=== PATIENT | male | born 1950 | race Caucasian/White ===

== ENCOUNTER 2017-12-06 17:17 | Inpatient (IN) | payer MEDICARE ==
[2017-12-06 18:39] LABS: BASOPHILS % (AUTO) 0.2 %; EOSINOPHILS # (AUTO) 0.1 10^3/uL (0.0-0.7); EOSINOPHILS % (AUTO) 0.5 %; HGB - HEMOGLOBIN 13.3 g/dL (14.0-18.0); LYMPHOCYTES % (AUTO) 6.8 %; MEAN CORPUSCULAR HGB CONC 33.6 g/dL (32.0-36.0); MEAN CORPUSCULAR VOLUME 89.2 fL (80.0-94.0); MEAN PLATELET VOLUME 7.5 fL (7.4-11.4); MONOCYTES # (AUTO) 1.3 10^3/uL (0.0-1.0); MONOCYTES % (AUTO) 8.8 %; NEUTROPHILS # (AUTO) 12.2 10^3/uL (1.5-6.6); NEUTROPHILS % (AUTO) 83.7 %; PLT - PLATELET COUNT 205 10^3/uL (130-450); RED BLOOD COUNT 4.42 10^6/uL (4.70-6.10); RED CELL DISTRIBUTION WIDTH 13.1 % (12.0-15.0); WHITE BLOOD COUNT 14.6 x10^3/uL (4.8-10.8)
[2017-12-06 18:49] LABS: ALBUMIN 3.8 g/dL (3.2-5.5); ALBUMIN/GLOBULIN RATIO 1.1 (1.0-2.2); CALCIUM 8.8 mg/dL (8.5-10.3); CREATININE 1.8 mg/dL (0.6-1.2); TOTAL PROTEIN 7.3 g/dL (6.7-8.2)
[2017-12-06 18:52] LABS: INR 1.1 (0.8-1.2); PT - PROTHROMBIN TIME 12.7 secs (9.9-12.6)
[2017-12-06 19:02] LABS: BILIRUBIN,URINE NEGATIVE (NEGATIVE); GLUCOSE, URINE (UA) NEGATIVE (NEGATIVE); KETONES,URINE (UA) NEGATIVE (NEGATIVE); LEUKOCYTE ESTERASE, URINE NEGATIVE (NEGATIVE); NITRITE,URINE NEGATIVE (NEGATIVE); OCCULT BLOOD,URINE NEGATIVE (NEGATIVE); PH,URINE 5.5 PH (5.0-7.5); PROTEIN,URINE TRACE mg/dL (NEGATIVE); UROBILINOGEN,URINE 2 E.U./dL (NORMAL)
[2017-12-06 19:04] LABS: CLARITY,URINE CLEAR (CLEAR)
[2017-12-06] MEDS ORDERED: SODIUM CHLORIDE 0.9% 1,000 ML IV ONE (19:40)
[2017-12-06] MEDS ORDERED: ONDANSETRON 4 MG/2 ML VIAL IVP STA (19:40)
--- NOTE | 2017-12-06 19:44 | ED Physician Documentation ---
PD HPI ABD PAIN - Stated complaint Stated Complaint: RT SIDE PX - Chief complaint Chief Complaint: Abd Pain - History obtained from History obtained from: Patient - History of Present Illness Timing - onset: Other (This is a 67-year-old gentleman with history of congestive heart failure and methamphetamine and GHB abuse although he says he has not used in a couple of weeks. He has 3 days of constant nonmigratory right lower quadrant pain that is worse with heat when he moves. It is associated with obstipation. No vomiting however it. He says he never had any abdominal surgeries, but he does have a periumbilical incision and when confronted with this says he may have had umbilical hernia repair in the past.) Review of Systems Ten Systems: 10 systems reviewed and negative Constitutional: denies: Fever, Chills Cardiac: denies: Chest pain / pressure, Palpitations Respiratory: denies: Dyspnea, Cough GI: reports: Abdominal Pain, Constipation. denies: Nausea, Vomiting, Hematemesis, Bloody / black stool PD PAST MEDICAL HISTORY - Past Medical History Cardiovascular: Hypertension GI: GERD - Past Surgical History Past Surgical History: Yes - Present Medications Home Medications: Ambulatory Orders Medication Instructions Recorded Confirmed Furosemide [Lasix] 20 mg PO DAILY #14 tablet 09/01/14 Lisinopril 0 12/06/17 Metoprolol Succinate 25 mg PO DAILY 12/06/17 Spironolactone 12.5 mg PO DAILY 12/06/17 - Allergies Allergies/Adverse Reactions: Allergies Allergy/AdvReac Type Severity Reaction Status Date / Time No Known Drug Allergies Allergy Verified 12/06/17 17:25 - Social History Does the pt smoke?: No Smoking Status: Never smoker Does the pt drink ETOH?: No Does the pt have substance abuse?: Yes - Family History Family history: reports: Non contributory - Immunizations Immunizations are current?: Yes - POLST Patient has POLST: No PD ED PE NORMAL - Vitals Vital signs reviewed: Yes - General General: Alert and oriented X 3, No acute distress - HEENT HEENT: PERRL, EOMI - Neck Neck: Supple, no meningeal sign, No bony TTP - Cardiac Cardiac: RRR, No murmur - Respiratory Respiratory: No respiratory distress, Clear bilaterally - Abdomen Abdomen: Other (Quite tender in the right lower quadrant with rebound tenderness.) - Back Back: No CVA TTP, No spinal TTP - Derm Derm: Normal color, Warm and dry - Extremities Extremities: No edema, No calf tenderness / cord - Neuro Neuro: Alert and oriented X 3, Normal speech Results - Vitals Vitals: Vital Signs - 24 hr 12/06/17 12/06/17 17:21 18:54 Temperature 36.5 C Heart Rate 94 70 Respiratory 18 16 Rate Blood Pressure 97/51 L 108/77 O2 Saturation 95 99 Oxygen O2 Source Room air - EKG (time done) 2047 Rate: Rate (enter#) (75) Rhythm: NSR [place]: Normal Intervals: Normal GA QRS: Normal, Low voltage Ischemia: Normal ST segments Computer interpretation: Agree with computer - Labs Labs: Laboratory Tests 12/06/17 12/06/17 12/06/17 18:05 18:05 18:29 WBC 14.6 H RBC 4.42 L Hgb 13.3 L Hct 39.5 L MCV 89.2 MCH 30.0 MCHC 33.6 RDW 13.1 Plt Count 205 MPV 7.5 Neut # 12.2 H Lymph # 1.0 L [place] # 1.3 H Eos # 0.1 Baso # 0.0 Absolute Nucleated RBC 0.00 Nucleated RBC % 0.0 PT INR Sodium Potassium Chloride Carbon Dioxide Anion Gap BUN Creatinine Estimated GFR (MDRD) Glucose Calcium Total Bilirubin AST ALT Alkaline Phosphatase Troponin I B-Natriuretic Peptide Total Protein Albumin Globulin Albumin/Globulin Ratio Lipase Urine Color YELLOW Urine Clarity CLEAR Urine pH 5.5 Ur Specific [place] 1.025 Urine Protein TRACE Urine Glucose (UA) NEGATIVE Urine Ketones NEGATIVE Urine Occult Blood NEGATIVE Urine Nitrite NEGATIVE Urine Bilirubin NEGATIVE Urine Urobilinogen 2 H Ur Leukocyte Esterase NEGATIVE Ur Microscopic Review NOT INDICATED Urine Culture Comments NOT INDICATED Urine Opiates Screen POSITIVE H Ur Oxycodone Screen POSITIVE H Urine Methadone Screen NEGATIVE Ur Propoxyphene Screen NEGATIVE Ur Barbiturates Screen NEGATIVE Ur Tricyclics Screen NEGATIVE Ur Phencyclidine Scrn NEGATIVE Ur Amphetamine Screen POSITIVE H U Methamphetamines Scrn POSITIVE H U Benzodiazepines Scrn NEGATIVE Urine Cocaine Screen NEGATIVE U Cannabinoids Screen POSITIVE H Blood Type Recheck 12/06/17 12/06/17 12/06/17 18:29 18:29 18:29 WBC RBC Hgb Hct MCV MCH MCHC RDW Plt Count MPV Neut # Lymph # [place] # Eos # Baso # Absolute Nucleated RBC Nucleated RBC % PT 12.7 H INR 1.1 Sodium 131 L Potassium 3.9 Chloride 97 L Carbon Dioxide 25 Anion Gap 9.0 BUN 21 H Creatinine 1.8 H Estimated GFR (MDRD) 38 L Glucose 111 H Calcium 8.8 Total Bilirubin 1.0 AST 15 ALT 11 Alkaline Phosphatase 57 Troponin I < 0.04 B-Natriuretic Peptide Total Protein 7.3 Albumin 3.8 Globulin 3.5 Albumin/Globulin Ratio 1.1 Lipase 15 L Urine Color Urine Clarity Urine pH Ur Specific [place] Urine Protein Urine Glucose (UA) Urine Ketones Urine Occult Blood Urine Nitrite Urine Bilirubin Urine Urobilinogen Ur Leukocyte Esterase Ur Microscopic Review Urine Culture Comments Urine Opiates Screen Ur Oxycodone Screen Urine Methadone Screen Ur Propoxyphene Screen Ur Barbiturates Screen Ur Tricyclics Screen Ur Phencyclidine Scrn Ur Amphetamine Screen U Methamphetamines Scrn U Benzodiazepines Scrn Urine Cocaine Screen U Cannabinoids Screen Blood Type Recheck 12/06/17 12/06/17 18:29 18:29 WBC RBC Hgb Hct MCV MCH MCHC RDW Plt Count MPV Neut # Lymph # [place] # Eos # Baso # Absolute Nucleated RBC Nucleated RBC % PT INR Sodium Potassium Chloride Carbon Dioxide Anion Gap BUN Creatinine Estimated GFR (MDRD) Glucose Calcium Total Bilirubin AST ALT Alkaline Phosphatase Troponin I B-Natriuretic Peptide 35 Total Protein Albumin Globulin Albumin/Globulin Ratio Lipase Urine Color Urine Clarity Urine pH Ur Specific [place] Urine Protein Urine Glucose (UA) Urine Ketones Urine Occult Blood Urine Nitrite Urine Bilirubin Urine Urobilinogen Ur Leukocyte Esterase Ur Microscopic Review Urine Culture Comments Urine Opiates Screen Ur Oxycodone Screen Urine Methadone Screen Ur Propoxyphene Screen Ur Barbiturates Screen Ur Tricyclics Screen Ur Phencyclidine Scrn Ur Amphetamine Screen U Methamphetamines Scrn U Benzodiazepines Scrn Urine Cocaine Screen U Cannabinoids Screen Blood Type Recheck O POSITIVE - Rads (name of study) CT KUB Radiology: EMP read contemporaneously (Acute appy also R UPJ stone) PD MEDICAL DECISION MAKING - ED course ED course: I spoke with the on-call surgeon after my initial evaluation, given 3 days of pain and advanced age wanted CT scanning which is ordered. Once the CT was done I looked at it, although it is read as unruptured appendicitis, there is significant inflammation around the cecum and I suspect that he is actually ruptured especially given the 3 days of pain. The surgeon evaluated him and is admitting him for IV antibiotics given his likely ruptured state. Surgeon also wanted tucker for close monitoring of UOP. Given his history of CHF, the surgeon also requested her troponin, EKG, BNP, and hospitalist consult. All of these were done. Departure - Departure Disposition: 65 [facility] DC/Xfer Clinical Impression: Congestive heart failure, Ruptured appendicitis, Methamphetamine abuse Condition: Stable Discharge Date/Time: 12/06/17 22:15
[2017-12-06 20:11] LABS: MUDS CUTOFF CONCENTRATIONS CUTOFF CONC BELOW:
[2017-12-06] MEDS ORDERED: PIPERACILLIN/TAZOBACTAM 4.5 GM in SODIUM CHLORIDE 0.9% MINIBAG 100 ML IV STA (20:11)
[2017-12-06] MEDS ORDERED: metroNIDAZOLE 500 MG/100 ML 500 MG/100 ML BAG IV ONE (20:15)
[2017-12-06 20:28] LABS: AMPHETAMINE SCREEN,URINE POSITIVE (NEGATIVE); BENZODIAZEPINES SCREEN, URINE NEGATIVE (NEGATIVE); COCAINE SCREEN URINE NEGATIVE (NEGATIVE); METHADONE SCREEN, URINE NEGATIVE (NEGATIVE); METHAMPHETAMINES SCREEN, URINE POSITIVE (NEGATIVE); OPIATE SCREEN, URINE POSITIVE (NEGATIVE); OXYCODONE SCREEN, URINE POSITIVE (NEGATIVE); PROPOXYPHENE SCREEN, URINE NEGATIVE (NEGATIVE); TRICYCLIC ANTIDEPRESSANT,URINE NEGATIVE (NEGATIVE)
[2017-12-06] MEDS ORDERED: SODIUM CHLORIDE FLUSH 0.9% 10 ML SYRINGE IVP PRN ×2 (20:30)
[2017-12-06] MEDS ORDERED: HYDROmorphone 1 MG/ML SYRINGE IVP PRN (20:30)
[2017-12-06] MEDS: HYDROmorphone 1 MG/ML SYRINGE IVP STA ×2 (20:37→21:55)
--- NOTE | 2017-12-06 20:46 | CT Report ---
EXAM: CT ABDOMEN AND PELVIS EXAM DATE: 12/06/2017 08:12 PM. CLINICAL HISTORY: RLQ pain, bad gfr. COMPARISONS: None. TECHNIQUE: Routine helical CT imaging was performed through the abdomen and pelvis. IV contrast: None . Enteric contrast: No. Reconstructions: Coronal and sagittal. In accordance with CT protocol optimization, one or more of the following dose reduction techniques w ere utilized for this exam: automated exposure control, adjustment of mA and/or KV based on patient s ize, or use of iterative reconstructive technique. FINDINGS: Lung Bases: Clear lung bases. No effusions. At least 2 vessel coronary artery calcification. Liver: Normal. No masses. Gallbladder/Bile Ducts: Unremarkable. Spleen: Normal. Pancreas: Normal. Adrenal Glands: Normal. Kidneys: Large stone in the right UPJ measuring 1.8 x 1.3 cm. Probable large stone in right lower erik e measuring 1.4 cm, partially obscured by high-density material in dependent calyces. Marked right hy dronephrosis. Peritoneal Cavity/Bowel: Distended appendix measuring about 11 or 12 mm with ill-definition and promi nent hazy infiltration of surrounding fat. Cecal contraction. No drainable fluid collection or absces s formation at this time. No free fluid, free air, or lymphadenopathy. No bowel dilation. Pelvic Organs: Normal. The bladder and visualized pelvic organs are within normal limits. Vasculature: No aneurysms or other significant abnormality. Bones: No significant abnormality. Other: None. IMPRESSION: 1. Acute unruptured appendicitis. 2. Large right UPJ stone with marked hydronephrosis. 3. High density material in dilated right calyces and other chronic findings. [facility] Referring Provider Line: [phone] SITE ID: [id number]
[2017-12-06] MEDS ORDERED: NS W/20 MEQ KCL 1,000 ML IV SCH (21:00)
[2017-12-06] MEDS: PIPERACILLIN/TAZOBACTAM 4.5 GM in SODIUM CHLORIDE 0.9% MINIBAG 100 ML IV SCH (22:46)
--- NOTE | 2017-12-06 22:57 | XRAY Preliminary Report ---
Exam: XR CHEST 1 VIEW X-RAY IMPRESSION: Bibasilar atelectasis. No other acute disease. [facility] SITE ID: [id number]
--- NOTE | 2017-12-06 22:57 | XRAY Report ---
EXAM: CHEST RADIOGRAPHY EXAM DATE: 12/06/2017 09:39 PM. CLINICAL HISTORY: Pre-op, ruptured appendix, Hx of CHF. COMPARISON: 09/02/2014. TECHNIQUE: 1 view. FINDINGS: Lungs/Pleura: Bibasilar atelectasis. No consolidation, effusion, or pneumothorax. Mediastinum: Within exam limitations, the cardiomediastinal contour is normal. Other: Mild scoliosis. Degenerative changes. Old left clavicle fracture. No free intraperitoneal air. IMPRESSION: Bibasilar atelectasis. No other acute disease. [facility] Referring Provider Line: [phone] SITE ID: [id number]
[2017-12-06] MEDS: SODIUM CHLORIDE FLUSH 0.9% 10 ML SYRINGE IVP SCH (23:51)
[2017-12-07] MEDS ORDERED: D5NS W/20 MEQ KCL 1,000 ML IV SCH
[2017-12-07] MEDS ORDERED: SODIUM CHLORIDE FLUSH 0.9% 10 ML SYRINGE IVP SCH ×2 (01:00→17:00)
--- NOTE | 2017-12-07 02:52 | HISTORY & PHYSICAL EXAMINATION ---
DATE OF SERVICE: 12/06/2017 Physician: Guevara Le MD IDENTIFICATION: This is a 67, almost 68-year-old male who presents to the hospital with abdominal pain for 3 days' duration and he was worked up by the ER physician, found to have a history and physical consistent with appendicitis. With this patient's history of drug usage, I felt that a confirmatory CT is probably a good idea. CT scan shows a phlegmon in his right lower quadrant. The radiologist report says it is nonruptured, but I suspect it may be partially incorrect. It is 9 p.m. at night right now. I think that getting this fellow hydrated, getting some antibiotics on board and having hospitalist to help with his care, tuning him up a little bit would probably be of some benefit. I plan to give him medical management overnight and probably operate on him tomorrow morning, assuming he does not deteriorate during the night. The patient also relates he had this same problem a year ago, did not see anybody, and it kind of got better. He says he has not had any fevers with this event and his last meal was this morning. ALLERGIES: HE IS ALLERGIC TO NOTHING. MEDICATIONS He is not real sure of his medicines. The ER doc says he takes: 1. Lasix. 2. Lisinopril. 3. Aldactone. 4. Metoprolol. PAST SURGICAL HISTORY: Operations include toe and umbilical hernia. PAST MEDICAL HISTORY: He has a history of hypertension. Denies diabetes, tuberculosis, seizures or transfusion. SOCIAL HISTORY: He does not smoke. He says he rarely uses alcohol, and there is no history of thromboembolic disease. He is . He used to have a girlfriend, but not anymore. He lives in [place]. His hobby is trying to get well. 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 REVIEW OF SYSTEMS: He says is negative for [place], but the ER doc says it is positive for congestive heart failure. Negative for lung problems. Positive for the present illness, as far as GI goes. Negative for musculoskeletal, , skin, lymphatic, blood problems such as hepatitis, endocrine problems nor neurologic problems that he is aware of. PHYSICAL EXAMINATION GENERAL: He is quite cooperative. VITAL SIGNS: He is afebrile. His pulse is 70. His blood pressure is okay. His respiratory rate is 12. HEAD, EYES, EARS, NOSE, AND THROAT: Appear normal. NECK: Without jugular venous distention, masses, or bruits. CHEST: Clear. HEART: Regular rate and rhythm without rub, gallop or murmur. ABDOMEN: Appears a little bit distended. Bowel tones are present. He is quite tender in his lower abdomen. EXTREMITIES: Femoral pulses are normal, as are pedal pulses. GENITOURINARY: Exam appears normal. RECTAL: I did not do a rectal exam at the present time, likely will do that in the ED. LABORATORY DATA: His white count is 14.6 with a left shift, hematocrit 40, platelets 205. INR 1.1. Sodium 131, potassium 3.9, BUN 21, creatinine 1.8, glucose 111. Lipase normal. Urine negative for apparent infection. ASSESSMENT: Appendicitis, advanced and current. PLAN: Admit him, hydrate him, get the hospitalist involved with his care because of his drug usage and because of his apparent cardiac history, and probably operate on him tomorrow. I expect it could be a very difficult, prolonged operation. It could even turn into a partial right colon resection. PARQ is accomplished by myself with the patient. We are going to have them put a Steele in him, watch his urine output, and see where all this goes. I will be monitoring him closely. We thank everybody for their help with his care. cc: JIMMY Martines TD: 12/07/2017 02:50
[2017-12-07] MEDS: PIPERACILLIN/TAZOBACTAM 4.5 GM in SODIUM CHLORIDE 0.9% MINIBAG 100 ML IV SCH ×2 (03:00→08:26)
--- NOTE | 2017-12-07 03:02 | CONSULTATION NOTE ---
DATE OF SERVICE: 12/06/2017 Physician: Danielle Hurd MD HISTORY OF PRESENT ILLNESS: This is a 67-year-old, white male with a history of methamphetamine and other drug abuse, and a history of cardiomyopathy found in 2013, felt to be from drug use with an ejection fraction of 20% to 25%, and he has been taking beta ana, DEXTER inhibitor, spironolactone since that time; follows with a commercial real estate appraiser 1 or 2 times a year and has been stable. The patient presents now with right lower quadrant pain and is being admitted under the surgical service for an acute appendicitis with rupture. The surgeon has requested for internal medicine consultation regarding preop clearance and medication management. PAST MEDICAL HISTORY: Cardiomyopathy diagnosed 4 years ago, stable symptoms on CHF medications. History of methamphetamine and other drug use. ALLERGIES: NONE. MEDICATIONS AT HOME 1. Spironolactone 12.5 mg daily. 2. Metoprolol succinate 25 mg daily. 3. Lisinopril, unknown dose daily. 4. Lasix 20 mg daily. FAMILY HISTORY: No inherited diseases. SOCIAL HISTORY: Prior methamphetamine use, currently some cannabis use, nonsmoker who never smoked, uses no alcohol. He is a retired jeweler. REVIEW OF SYSTEMS: A comprehensive review of systems was performed and the pertinent positives are as above. PHYSICAL EXAMINATION GENERAL: White male in no distress, supine in bed. VITAL SIGNS: Blood pressure 132/76, pulse of 76, afebrile, room air saturation 95%. HEENT: Unremarkable. Moist oral mucosa. NECK: Without JVD or carotid bruits. LUNGS: Clear. HEART: Sounds normal. ABDOMEN: Mildly distended. Decreased bowel sounds. Tender to light touch in the right lower quadrant and there is no rebound. There is no guarding. EXTREMITIES: No clubbing, cyanosis or edema. NEUROLOGIC: Intact. LABORATORIES: Sodium 131, potassium 3.9, BUN 21, creatinine 1.8. Normal liver tests and bilirubin. BNP normal at 35. Troponin less than 0.04. Lipase normal. INR normal. White blood count 14.6 with a left shift, hemoglobin 13.3, platelet count normal at 205. Urinalysis unremarkable. Toxicology showed positive opiates, oxycodone, amphetamine, methamphetamine, and marijuana. Abdominal imaging showed acute appendicitis with a probable rupture. EKG: Normal sinus rhythm and within normal limits. IMPRESSION/DIAGNOSES 1. Chronic systolic heart failure, currently no exacerbation of heart failure. 2. History of pulmonary hypertension by echocardiogram from 2013, currently no signs of right-sided heart failure. 3. Acute appendicitis with rupture. 4. Hyponatremia. 5. Drug abuse history. 6. Acute renal failure. PLAN: I recommend getting a preoperative chest x-ray. Even though his BNP is normal, careful use of IV rehydration is advised. I would change the normal saline at 150 to D5 with normal saline and some potassium so that he gets some nutrition and decrease the rate to about 80-100 an hour. With this EKG and the history of his cardiac status as he described to me and his physical exam, the patient has a low cardiac risk to undergo surgery with general anesthesia. I agree with the use of the IV antibiotics that you have started. Continue following his electrolytes, CBC, magnesium while he is n.p.o., and his I's and O's with a Steele. We will follow along with you. Thank you for allowing us to participate in the care of this patient. TD: 12/07/2017 03:00
[2017-12-07] MEDS: metroNIDAZOLE 500 MG/100 ML 500 MG/100 ML BAG IV SCH ×3 (03:33→17:30)
[2017-12-07] MEDS ORDERED: PANTOPRAZOLE 40 MG VIAL IVP SCH (07:00)
[2017-12-07] MEDS: SODIUM CHLORIDE FLUSH 0.9% 10 ML SYRINGE IVP SCH ×2 (08:29→17:33)
[2017-12-07] MEDS ORDERED: BUPIVACAINE 0.5% PF 10 ML VIAL ONE (08:58)
[2017-12-07] MEDS ORDERED: LACTATED RINGERS 1,000 ML IV ONE (09:13)
[2017-12-07] MEDS ORDERED: ceFAZolin 1 GM VIAL IR ONE (10:47)
[2017-12-07] MEDS ORDERED: PHENOL THROAT SPRAY 177 ML MM PRN (11:02)
[2017-12-07] MEDS ORDERED: ONDANSETRON 4 MG/2 ML VIAL IVP PRN (11:02)
[2017-12-07] MEDS ORDERED: HYDROmorphone 1 MG/ML SYRINGE IVP PRN ×2 (11:02→12:15)
[2017-12-07] MEDS ORDERED: SODIUM CHLORIDE FLUSH 0.9% 10 ML SYRINGE IVP PRN (11:02)
[2017-12-07] MEDS ORDERED: METOCLOPRAMIDE 10 MG/2 ML VIAL IVP PRN (11:02)
[2017-12-07] MEDS ORDERED: fentaNYL 100 MCG/2 ML VIAL ONE (11:33)
[2017-12-07] MEDS: HYDROmorphone 1 MG/ML SYRINGE ONE ×2 (11:45→12:05)
[2017-12-07] MEDS: NS W/20 MEQ KCL 1,000 ML IV SCH ×2 (12:52→22:40)
[2017-12-07] MEDS: PIPERACILLIN/TAZOBACTAM 3.375 GM in SODIUM CHLORIDE 0.9% MINIBAG 100 ML IV SCH ×2 (13:34→20:49)
[2017-12-07] MEDS: PROPARACAINE 0.5% OPHTH DROPS 15 ML RIGHTEYE SCH ×7 (14:38→20:48)
--- NOTE | 2017-12-07 16:14 | PROVIDER PROGRESS NOTE ---
Subjective - Prog Note Date Prog Note Date: 12/07/17 Prog Note Time: 14:00 - Subjective Pt reports feeling: Improved Subjective: Don complains of right eye discomfort due to "I think there is something stuck in it and it feel sharp". He denies SOB, chest pain, N/V or a new cough. Current Medications - Current Medications Current Medications: Active Medications Hydromorphone HCl (Dilaudid Inj Syringe) 1 mg IVP Q2HR PRN PRN Reason: Severe Pain Last Admin: 12/07/17 13:34 Dose: 1 mg Metronidazole (Flagyl 500 Mg/100 Ml) 500 mg in 100 mls @ 100 mls/hr IV Q8H [facility] Piperacillin Sod/Tazobactam (Sod 3.375 gm/ Sodium Chloride) 100 mls @ 200 mls/ hr IV Q6H [facility] Last Infusion: 12/07/17 15:04 Dose: Infused Potassium Chloride/Sodium Chloride (Normal Saline 0.9% W/20 Meq Kcl) 1,000 mls @ 150 mls/hr IV .Q6H40M [facility] Last Admin: 12/07/17 12:52 Dose: 150 mls/hr Metoclopramide HCl (Reglan Inj) 10 mg IVP Q6H PRN PRN Reason: Nausea / Vomiting Ondansetron HCl (Zofran Inj) 4 mg IVP Q6H PRN PRN Reason: Nausea / Vomiting Pantoprazole Sodium (Protonix) 40 mg PO QDAC [facility] Phenol/Menthol (Chloraseptic) 1 sprays MM Q2HR PRN PRN Reason: Throat Pain Proparacaine HCl (Alcaine 0.5% Ophth Drops) 1 drops RIGHTEYE Q2H [facility] Sodium Chloride (Normal Saline Flush 0.9%) 10 ml IVP PRN PRN PRN Reason: NEEDED PER PROVIDER ORDERS Sodium Chloride (Normal Saline Flush 0.9%) 10 ml IVP 0100,0900,1700 [facility] Last Admin: 12/07/17 08:29 Dose: Not Given Metoprolol Succinate 100 mg PO DAILY 12/06/17 Spironolact/Hydrochlorothiazid [Spironolactone-Hctz 25-25 Tab] 0.5 tab PO DAILY 12/07/17 raNITIdine HCl [Ranitidine HCl] 300 mg PO DAILY 12/07/17 Objective - Vital Signs/Intake & Output Reviewed Vital Signs: Yes Vital Signs: Vital Signs x48h Temp Pulse Resp BP Pulse Ox 12/07/17 15:07 36.4 C L 84 16 103/68 96 12/07/17 14:03 36.4 C L 84 20 111/68 98 12/07/17 13:00 36.5 C 77 20 125/76 98 12/07/17 12:27 37 C 72 20 114/62 94 12/07/17 11:50 94 12/07/17 11:40 98 12/07/17 11:30 99 12/07/17 11:20 97 12/07/17 11:10 99 12/07/17 11:05 98 12/07/17 11:00 97 Intake & Output: Intake & Output 12/04/17 12/05/17 12/06/17 12/07/17 23:59 23:59 23:59 23:59 Intake Total 1200 1600 Output Total 150 760 Balance 1050 840 - Objective General Appearance: positive: Alert, Moderate distress Eyes Bilateral: positive: PERRL Eyes: OD Other (erythema, irritation post-op.) ENT: positive: ENT inspection nml, Pharynx nml, No signs of dehydration Neck: positive: Nml inspection, Thyroid nml, No JVD, Trachea midline Respiratory: positive: Chest non-tender, No respiratory distress, Breath sounds nml Cardiovascular: positive: Regular rate & rhythm, No gallop, Decreased pulse(s) Peripheral Pulses: 1+ Radial (R), 1+ Radial (L) Abdomen: positive: Tenderness, Guarding, Abnml bowel sounds Back: positive: Nml inspection Skin: positive: No rash, Warm, Dry Extremities: positive: Non-tender, Full ROM, Nml appearance, No pedal edema Neurologic/Psychiatric: positive: Oriented x3, CN's nml (2-12), Motor nml, Sensation nml, Depressed mood/affect Reflexes: Bicep (R): 2+, Bicep (L): 2+ - Lab Results Fish Bones: 12/10/17 08:40 12/10/17 08:40 Other Labs: Lab Results x24hrs 12/06/17 Range/Units 20:33 Blood Type O POSITIVE Antibody Screen NEGATIVE - Diagnostic Imaging Diagnostic Imaging Results: positive: Prelim report reviewed, Final report reviewed Assessment/Plan - Problem List (1) Corneal abrasion, right Impression: Shortly upon returning from OR today, the patient stated that "something sharp is in my eye". This may have occurred as the patient was waking up from anesthesia and may have been too sleepy to realize that he was scratching his eye. The eye was flushed both by nursing and myself using vigorous normal saline syringes. A flouresine lamp, staining paper and proparacaine ophthalmic gtts were used to properly inspect and no foreign bodies could be seen. The sclera and a pencil tipped sized spot on cornea were appreciated. Bacatracin ointment was ordered, and up to 3 more doses of the gtts can safely be used. Also a patch was applied to the eye. Plan: Continue to use an eye patch for the next 48 hours, ointment and monitor. Qualifiers: Encounter type: initial encounter Qualified Code(s): S05.01XA - Injury of conjunctiva and corneal abrasion without foreign body, right eye, initial encounter (2) S/P appendectomy Impression: Patient underwent an open appendectomy with drain placement for a perforated appendicitis with Dr. Le general surgery. Plan: Continue to monitor for infection and assist with pain control medications if needed. (3) Methamphetamine abuse Impression: Patient does not admit to this when asked, but it is known per chart review that he has been dependent for some time. At the time of admission, he was found to be positive for opiates, oxycodone, amphetamine, methamphetamines, and cannabinoids. Plan: Encourage cessation, monitor visitors, and offer AODA services upon discharge. (4) Ruptured appendicitis Impression: At the time of admission the patient admitted to a 3 day history of constant nonmigratory right lower quadrant pain that became worse with movement. Associated symptoms are constipation and mild nausea. He denies previous abdominal surgeries other than and umbilical hernia repair in the past. As per imaging, this was suspicious for a ruptured appendicitis. Plan: Patient is now post op day #1 and we will continue to monitor. (5) SIMBA (acute kidney injury) Impression: Patient is known to have CKD per chart review. GFR was low at 38 at the time of admission and is now improved at 47. Creatinine on admission was elevated at 1.8, and improved today at 1.5. Plan: We will continue IV antibiotics given the potential of infection and monitor vital signs and daily labs. (6) Pulmonary hypertension Impression: Patient has indicated that he has never been a tobacco user, but is a known drug addict with life long addiction. Many of these substances are likely inhaled or ingested. He was most recently + for marijuana. Plan: Plans to resume Sprionolactone when appropriate and administer oxygen especially in the post-op period. (7) Chronic systolic heart failure Impression: Per chart review as per a clinic note dated 10/25/17. The patient sees a pole shaver helper at [facility] Dr. Boone Grace. ECHO 06/08- EF 60-65%, mild LVH , mild to mod AVR, moderate mitral regurg and this is greatly improved from the latest echo that we have from 2013 and the the EF was only 20-25%. Patient is also noted to have a diagnosis of cardiomyopathy and is prescribed spironolactone/HCTZ, lasix, metoprolol ER. Plan: Medications were on hold due to patient being post-op. Plan to monitor vital signs and resume in the next few days.
[2017-12-07] MEDS: BACITRACIN/POLYMYXIN OPHTH OINT 3.5 GM RIGHTEYE SCH ×2 (17:28→20:48)
--- NOTE | 2017-12-07 20:11 | OPERATIVE REPORT ---
DATE OF SERVICE: Physician: Guevara Le MD PREOPERATIVE DIAGNOSIS: Probable perforated appendicitis. POSTOPERATIVE DIAGNOSIS: Probable perforated appendicitis. NAME OF PROCEDURE: Open appendectomy with placement of drains. SURGEON: Guevara Le MD FOUNDER AND PRESIDENT: Hospital personnel. ANESTHESIA: INDICATIONS FOR PROCEDURE: This is a fellow who came in late yesterday evening with this diagnosis. I tucked him in, gave him IV antibiotics overnight, hydrated him, and after extensive PAR-Q by me with him concerning the recommendation for surgery, the expected conduct of surgery, and potential complications which include, but are not limited to bleeding, infection, , local organ injury, needing further procedures and my experience with the same over the years, he wished to proceed. DESCRIPTION OF PROCEDURE: We took him to the operating room. He had been on Zosyn and Flagyl. We gave him a couple grams of Ancef since it has been a while since he had any Zosyn as a preoperative antibiotic. Also, he was shaved, intubated, prepped and draped in a sterile fashion. He already had a Steele catheter in. Appropriate timeout was accomplished, and once that was all accomplished and everybody was in agreement, I made a right lower quadrant McBurney-type incision through skin and subcutaneous tissue down through the external oblique fascia, incised across the rectus muscle in a [place] extension. At that point, I teased the rectus medially and entered the peritoneal cavity by incising the peritoneum behind the rectus. I got my fingers in and the [employer] retractors and stretched everything. I initially put a Weitlaner self-retaining retractor in, inspected. Everything was quite inflamed and stuck. Of note, this fellow said he had the same problem about a year ago. He toughed it out at home. I kind of suspect he was right. With finger dissection, tonsil dissection, it became obvious that this was a complicated appendix. I needed to make my incision a little bit larger, so I went laterally and cut through the external oblique muscles with the Bovie over my finger. I put the self-retaining retractor in again, stretched everything out, and started working with a peanut right-angle dissection. Things were really stuck. I ended up having them open the LigaSure and took down some peritoneal attachments of the cecum. The appendix was retrocecal and down in his pelvis, so I had to work to free that up with finger dissection, tonsil dissection and using the LigaSure. The appendix kind of broke in half. I gave him the first half and kept working. It may have even been inflamed fat. I then basically worked to get the appendix out from the distal end up to the base of the appendix at the cecum, again using right-angle peanut, finger dissection, and LigaSure for dividing the mesentery to the appendix, etc. Once we got it there, I felt that I could probably staple across the base using a green load. They brought up a TA 50 or 60 with a green load. I put it over the distal cecum, clamped, fired it. I put a clamp on the appendix, cut it off and then lightly bovied the stump and then inverted that appendiceal stump with cecal tissue that would not all [TIME: 03:37] and inverted it nicely. I had a piece of fat from the fold of [place] laid over that and put a few stitches to tuck that over also. I irrigated every time I put sutures in. Then once that was done with saline, I dropped the viscera back in after irrigating everything in situ with 400 or 500 mL of saline. Then I put a ribbon down into his pelvis, put his head up, irrigated that. I then put a ##20 Boone drain in through a lateral stab wound, secured that with a piece of leftover silk. I made sure the sponge counts were correct and commenced my closure. I used 0 Vicryl on a UR to close the posterior fascia and peritoneum. Once we got that closed, I irrigated the wound with antibiotic solution of Ancef and saline where I had a gram and a couple 300 mL of saline. I got that layer all irrigated, and then I closed the anterior fascia with 0 Vicryl on a UR needle, running, tied it to itself, irrigated with antibiotics again. I did culture the peritoneal fluid, which was yucky looking, and I also felt that due to the contamination and I did get into a little bit of pus when I was doing this dissection with fingers and the tonsil sucker and he had fibrinous exudate, that I did not feel that I should close the skin. I used some Prolene stitch, I think it was #0 or #1, on a big needle and put far-far near-near sutures in, about a half a dozen of them, about 3/4 of an inch apart. I put clips on and used wrung-out moist saline dressings and dry dressings on top of that and [place] straps. I will have the nurses do wound dressing changes every 6 hours and follow him closely. I expect him to do okay, very well, may have a slow time opening it up. I had Anesthesia put an NG tube down him, which he promptly pulled out. I asked the nurses in the recovery room to put it back in. Will see where this goes. Estimated blood loss: 10-15 mL. Sponge and needle counts were inspected for and reported as correct multiple times. He tolerated it well. He had some hematuria and I think it was just his Steele irritating him. At some point when we get him through all of this, he is going to need that worked up, probably by Urology. All in all, the operation went well, and it could have been worse. He has got some getting well to do; that's for sure. TD: 12/07/2017 20:10
[2017-12-07] MEDS ORDERED: IPRATROPIUM/ALBUTEROL 3 ML NEB INH PRN (21:12)
[2017-12-07] MEDS ORDERED: guaiFENesin/CODEINE 5 ML UDC PO PRN (21:13)
--- NOTE | 2017-12-07 22:44 | XRAY Report ---
EXAM: CHEST RADIOGRAPHY EXAM DATE: 12/07/2017 10:15 PM. CLINICAL HISTORY: Hemoptysis. COMPARISON: Chest x-ray 12/06/2017. TECHNIQUE: 1 view. FINDINGS: Lungs/Pleura: No pleural effusion or pneumothorax. Basilar diskoid atelectasis. Mediastinum: Normal heart size with aortic tortuosity. Other: Air within colon under the right hemidiaphragm. Old healed mid left clavicular fracture. IMPRESSION: Hypoaeration with bibasilar diskoid atelectasis. [facility] Referring Provider Line: [phone] SITE ID: [id number]
[2017-12-08] MEDS: metroNIDAZOLE 500 MG/100 ML 500 MG/100 ML BAG IV SCH ×3 (01:06→18:18)
[2017-12-08] MEDS ORDERED: LORazepam 2 MG/ML VIAL IVP PRN (01:24)
[2017-12-08] MEDS: SODIUM CHLORIDE FLUSH 0.9% 10 ML SYRINGE IVP SCH ×3 (01:53→18:21)
[2017-12-08] MEDS: PIPERACILLIN/TAZOBACTAM 3.375 GM in SODIUM CHLORIDE 0.9% MINIBAG 100 ML IV SCH ×4 (02:16→20:19)
[2017-12-08] MEDS: PANTOPRAZOLE 40 MG TABLET PO SCH (06:08)
[2017-12-08 06:34] LABS: BASOPHILS % (AUTO) 0.1 %; EOSINOPHILS % (AUTO) 0.1 %; HGB - HEMOGLOBIN 11.4 g/dL (14.0-18.0); LYMPHOCYTES # (AUTO) 0.7 10^3/uL (1.5-3.5); LYMPHOCYTES % (AUTO) 5.5 %; MEAN CORPUSCULAR HEMOGLOBIN 29.8 pg (27.0-31.0); MEAN CORPUSCULAR VOLUME 90.5 fL (80.0-94.0); MEAN PLATELET VOLUME 7.4 fL (7.4-11.4); MONOCYTES # (AUTO) 1.2 10^3/uL (0.0-1.0); MONOCYTES % (AUTO) 9.2 %; NEUTROPHILS # (AUTO) 11.4 10^3/uL (1.5-6.6); NEUTROPHILS % (AUTO) 85.1 %; PLT - PLATELET COUNT 213 10^3/uL (130-450); RED BLOOD COUNT 3.82 10^6/uL (4.70-6.10); RED CELL DISTRIBUTION WIDTH 12.9 % (12.0-15.0); WHITE BLOOD COUNT 13.4 x10^3/uL (4.8-10.8)
[2017-12-08 06:46] LABS: ALBUMIN/GLOBULIN RATIO 0.9 (1.0-2.2); CALCIUM 8.2 mg/dL (8.5-10.3); CREATININE 1.5 mg/dL (0.6-1.2); TOTAL PROTEIN 6.3 g/dL (6.7-8.2)
[2017-12-08] MEDS: NS W/20 MEQ KCL 1,000 ML IV SCH ×2 (06:55→14:58)
[2017-12-08] MEDS ORDERED: ENOXAPARIN 40 MG/0.4 ML SYRINGE SUBQ SCH (09:00)
[2017-12-08] MEDS: IPRATROPIUM/ALBUTEROL 3 ML NEB INH SCH ×4 (09:00→20:20)
--- NOTE | 2017-12-08 09:25 | PROVIDER PROGRESS NOTE ---
Subjective - Prog Note Date Prog Note Date: 12/08/17 Prog Note Time: 09:15 - Subjective Pt reports feeling: Improved (pt is pod 1, for pretty bad ruptired appendicitis- -subjectively he reports improvement, not much pain, tolerating dressing changes -- his vital signs are stable , afeb, pulse 76, bp 127/80, 100 % sao2, uo 1050 , drain 60 ml yesterday, serous.. wbc is 13.4 down drom 14k range, hct 34, plt 213, bun 19 down a little, cr 1.6 down hust a hair, alb 3, alk phos 38-- i am told he had r eye irritation for which he got some eyedrops and a patch and reports improvement-- if that is an issue tomorrow will try to work it up with flourescine by anesthesia maybe, right now not a pressing issue, also had some delerium during the night which seemas to have abated thos am, finally he has a bit of hemoptysis- says he has had that before- cxr does not show a mass , i suspect it is et tube irritation from operation- on duonebs , due to his cr donot think we should gert cta just yet- will start lovenox 40 mg daily for now, repeat bmp in am to check cr and then discuss cta with hospitalists and radiologists tomorrow am, started florastor, and on scheduled duonebs-- for right now i think it best to sit tight- pt informed-- belly appears distended, , has bowel tones, wound looks ok- will leave tucker in for now) Objective - Vital Signs/Intake & Output Vital Signs: Vital Signs x48h Temp Pulse Resp BP Pulse Ox 12/08/17 07:59 36.7 C 81 14 141/89 H 100 Intake & Output: Intake & Output 12/05/17 12/06/17 12/07/17 12/08/17 23:59 23:59 23:59 23:59 Intake Total 1200 2800 1500 Output Total 150 1090 20 Balance 1050 1710 1480 - Lab Results Fish Bones: 12/08/17 05:16 12/08/17 05:16 Other Labs: Lab Results x24hrs 12/08/17 12/08/17 Range/Units 05:16 05:16 WBC 13.4 H (4.8-10.8) x10^3/uL RBC 3.82 L (4.70-6.10) 10^6/uL Hgb 11.4 L (14.0-18.0) g/dL Hct 34.6 L (42.0-52.0) % MCV 90.5 (80.0-94.0) fL MCH 29.8 (27.0-31.0) pg MCHC 33.0 (32.0-36.0) g/dL RDW 12.9 (12.0-15.0) % Plt Count 213 (130-450) 10^3/uL MPV 7.4 (7.4-11.4) fL Neut # 11.4 H (1.5-6.6) 10^3/uL Lymph # 0.7 L (1.5-3.5) 10^3/uL [place] # 1.2 H (0.0-1.0) 10^3/uL Eos # 0.0 (0.0-0.7) 10^3/uL Baso # 0.0 (0.0-0.1) 10^3/uL Absolute Nucleated RBC 0.01 x10^3/uL Nucleated RBC % 0.1 /100WBC Sodium 136 (135-145) mmol/L Potassium 4.4 (3.5-5.0) mmol/L Chloride 109 (101-111) mmol/L Carbon Dioxide 19 L (21-32) mmol/L Anion Gap 8.0 (6-13) BUN 19 (6-20) mg/dL Creatinine 1.5 H (0.6-1.2) mg/dL Estimated GFR (MDRD) 47 L (>89) Glucose 109 H (70-100) mg/dL Calcium 8.2 L (8.5-10.3) mg/dL Total Bilirubin 1.0 (0.2-1.0) mg/dL AST 11 (10-42) IU/L ALT 10 (10-60) IU/L Alkaline Phosphatase 38 L (42-121) IU/L Total Protein 6.3 L (6.7-8.2) g/dL Albumin 3.0 L (3.2-5.5) g/dL Globulin 3.3 (2.1-4.2) g/dL Albumin/Globulin Ratio 0.9 L (1.0-2.2)
[2017-12-08] MEDS: BACITRACIN/POLYMYXIN OPHTH OINT 3.5 GM RIGHTEYE SCH ×2 (09:50→22:40)
[2017-12-08] MEDS: SACCHAROMYCES BOULARDII 250 MG CAPSULE PO SCH ×2 (09:52→18:18)
[2017-12-08] MEDS: HYDROmorphone 1 MG/ML CARPUJECT IVP PRN (12:10)
--- NOTE | 2017-12-08 19:41 | PROVIDER PROGRESS NOTE ---
Subjective - Prog Note Date Prog Note Date: 12/08/17 Prog Note Time: 12:00 - Subjective Pt reports feeling: Improved Subjective: Adán continues to complain of his eye pain and irritation. He states that he feels like something is in it. He denies chest pain, SOB, N/V or a new cough. Current Medications - Current Medications Current Medications: Active Medications Albuterol/Ipratropium (Duoneb) 3 ml INH Q4HR PRN PRN Reason: Wheezing Albuterol/Ipratropium (Duoneb) 3 ml INH RTQID [facility] Last Admin: 12/08/17 16:30 Dose: 3 ml Bacitracin/Polymyxin B Sulfate (Polysporin Ophth Oint) 1 applic RIGHTEYE BID [facility] Last Admin: 12/08/17 09:50 Dose: 1 drops Enoxaparin Sodium (Lovenox) 40 mg SUBQ DAILY [facility] Last Admin: 12/08/17 09:50 Dose: 40 mg Guaifenesin/Codeine Phosphate (Robitussin Ac) 5 ml PO Q6HR PRN PRN Reason: Cough Last Admin: 12/07/17 22:05 Dose: 5 ml Hydromorphone HCl (Dilaudid Inj Carp) 1 mg IVP Q2HR PRN PRN Reason: SEVERE PAIN Last Admin: 12/08/17 12:10 Dose: 1 mg Metronidazole (Flagyl 500 Mg/100 Ml) 500 mg in 100 mls @ 100 mls/hr IV Q8H [facility] Last Infusion: 12/08/17 19:39 Dose: Infused Piperacillin Sod/Tazobactam (Sod 3.375 gm/ Sodium Chloride) 100 mls @ 200 mls/ hr IV Q6H [facility] Last Infusion: 12/08/17 14:42 Dose: Infused Potassium Chloride/Sodium Chloride (Normal Saline 0.9% W/20 Meq Kcl) 1,000 mls @ 150 mls/hr IV .Q6H40M [facility] Last Admin: 12/08/17 14:58 Dose: 150 mls/hr Lorazepam (Ativan Inj (Vial)) 1 mg IVP Q2H PRN PRN Reason: Anxiety Last Admin: 12/08/17 01:53 Dose: 1 mg Metoclopramide HCl (Reglan Inj) 10 mg IVP Q6H PRN PRN Reason: Nausea / Vomiting Ondansetron HCl (Zofran Inj) 4 mg IVP Q6H PRN PRN Reason: Nausea / Vomiting Pantoprazole Sodium (Protonix) 40 mg PO QDAC [facility] Last Admin: 12/08/17 06:08 Dose: 40 mg Phenol/Menthol (Chloraseptic) 1 sprays MM Q2HR PRN PRN Reason: Throat Pain Saccharomyces Boulardii (Florastor) 500 mg PO BIDWM [facility] Last Admin: 12/08/17 18:18 Dose: 500 mg Sodium Chloride (Normal Saline Flush 0.9%) 10 ml IVP PRN PRN PRN Reason: NEEDED PER PROVIDER ORDERS Last Admin: 12/07/17 17:30 Dose: 10 ml Sodium Chloride (Normal Saline Flush 0.9%) 10 ml IVP 0100,0900,1700 [facility] Last Admin: 12/08/17 18:21 Dose: 10 ml Metoprolol Succinate 100 mg PO DAILY 12/06/17 Lisinopril 10 mg PO DAILY 12/07/17 Spironolactone 12.5 mg PO DAILY 12/07/17 raNITIdine HCl [Ranitidine HCl] 300 mg PO QPM PRN 12/07/17 Objective - Vital Signs/Intake & Output Reviewed Vital Signs: Yes Vital Signs: Vital Signs x48h Temp Pulse Pulse Resp BP Pulse Ox 12/08/17 16:30 76 18 12/08/17 16:05 36.2 C L 73 20 136/83 H 100 Intake & Output: Intake & Output 12/05/17 12/06/17 12/07/17 12/08/17 23:59 23:59 23:59 23:59 Intake Total 1200 2800 3300 Output Total 150 1090 610 Balance 1050 1710 2690 - Objective General Appearance: positive: No acute distress, Alert Eyes Bilateral: positive: PERRL Eyes: OD Other (mild reddness, irritation due to corneal abrasion.) ENT: positive: ENT inspection nml, Pharynx nml, No signs of dehydration Neck: positive: Nml inspection, Thyroid nml Respiratory: positive: Chest non-tender, No respiratory distress, Breath sounds nml Cardiovascular: positive: Regular rate & rhythm, No gallop, Systolic murmur, Decreased pulse(s) Peripheral Pulses: 2+ Radial (R), 2+ Radial (L), 2+ Dorsalis pedis (R), 2+ Dorsalis pedis (L) Abdomen: positive: Tenderness, Guarding, Abnml bowel sounds, Other (post-op wound, CDI.) Back: positive: Nml inspection Skin: positive: No rash, Warm, Dry Extremities: positive: Non-tender, Full ROM, Pedal edema Neurologic/Psychiatric: positive: Oriented x3, CN's nml (2-12), Motor nml, Sensation nml, Depressed mood/affect Reflexes: Bicep (R): 2+, Bicep (L): 2+ - Lab Results Fish Bones: 12/10/17 08:40 12/10/17 08:40 Other Labs: Lab Results x24hrs 12/08/17 12/08/17 Range/Units 05:16 05:16 WBC 13.4 H (4.8-10.8) x10^3/uL RBC 3.82 L (4.70-6.10) 10^6/uL Hgb 11.4 L (14.0-18.0) g/dL Hct 34.6 L (42.0-52.0) % MCV 90.5 (80.0-94.0) fL MCH 29.8 (27.0-31.0) pg MCHC 33.0 (32.0-36.0) g/dL RDW 12.9 (12.0-15.0) % Plt Count 213 (130-450) 10^3/uL MPV 7.4 (7.4-11.4) fL Neut # 11.4 H (1.5-6.6) 10^3/uL Lymph # 0.7 L (1.5-3.5) 10^3/uL [place] # 1.2 H (0.0-1.0) 10^3/uL Eos # 0.0 (0.0-0.7) 10^3/uL Baso # 0.0 (0.0-0.1) 10^3/uL Absolute Nucleated RBC 0.01 x10^3/uL Nucleated RBC % 0.1 /100WBC Sodium 136 (135-145) mmol/L Potassium 4.4 (3.5-5.0) mmol/L Chloride 109 (101-111) mmol/L Carbon Dioxide 19 L (21-32) mmol/L Anion Gap 8.0 (6-13) BUN 19 (6-20) mg/dL Creatinine 1.5 H (0.6-1.2) mg/dL Estimated GFR (MDRD) 47 L (>89) Glucose 109 H (70-100) mg/dL Calcium 8.2 L (8.5-10.3) mg/dL Total Bilirubin 1.0 (0.2-1.0) mg/dL AST 11 (10-42) IU/L ALT 10 (10-60) IU/L Alkaline Phosphatase 38 L (42-121) IU/L Total Protein 6.3 L (6.7-8.2) g/dL Albumin 3.0 L (3.2-5.5) g/dL Globulin 3.3 (2.1-4.2) g/dL Albumin/Globulin Ratio 0.9 L (1.0-2.2) - Diagnostic Imaging Diagnostic Imaging Results: positive: Final report reviewed Assessment/Plan - Problem List (1) Corneal abrasion, right Impression: Shortly upon returning from OR after undergoing an open appendectomy, the patient stated that "something sharp is in my eye". This may have occurred as the patient was waking up from anesthesia and he may have been too sleepy to realize that he was scratching his eye. The eye was flushed both by nursing and myself using vigorous normal saline syringes. A flouresine lamp, staining paper and proparacaine ophthalmic gtts were used to properly inspect and no foreign bodies could be seen. The sclera and a pencil tipped sized spot on cornea were appreciated. Bacatracin ointment has been helpful. Also a patch was applied to the eye. Plan: Continue to use an eye patch as needed for comfort, ointment and monitor. Qualifiers: Encounter type: initial encounter Qualified Code(s): S05.01XA - Injury of conjunctiva and corneal abrasion without foreign body, right eye, initial encounter (2) S/P appendectomy Impression: Patient underwent an open appendectomy with drain placement for a perforated appendicitis with Dr. Le general surgery. Plan: Continue to monitor for infection and assist with pain control medications if needed. (3) Methamphetamine abuse Impression: Patient does not admit to this when asked, but it is known per chart review that he has been dependent for some time. At the time of admission, he was found to be positive for opiates, oxycodone, amphetamine, methamphetamines, and cannabinoids. Plan: Encourage cessation, monitor visitors, and offer AODA services upon discharge. (4) Ruptured appendicitis Impression: At the time of admission the patient admitted to a 3 day history of constant nonmigratory right lower quadrant pain that became worse with movement. Associated symptoms are constipation and mild nausea. He denies previous abdominal surgeries other than and umbilical hernia repair in the past. As per imaging, this was suspicious for a ruptured appendicitis. Plan: Patient is now post op day #2 and we will continue to monitor. (5) SIMBA (acute kidney injury) Impression: Patient is known to have CKD per chart review. GFR was low at 38 at the time of admission and remains at 47. Creatinine on admission was elevated at 1.8, and improved today at 1.5. Plan: We will continue IV antibiotics given the potential of infection and monitor vital signs and daily labs. (6) Pulmonary hypertension Impression: Patient has indicated that he has never been a tobacco user, but is a known drug addict with life long addiction. Many of these substances are likely inhaled or ingested. He was most recently + for marijuana. Plan: Sprionolactone was resumed at 1/2 dose of 12.5mg dialy and we will continue to monitor. (7) Chronic systolic heart failure Impression: Per chart review as per a clinic note dated 10/25/17. The patient sees a turbine operator at [facility] Dr. Boone Grace. ECHO 06/08- EF 60-65%, mild LVH , mild to mod AVR, moderate mitral regurg and this is greatly improved from the latest echo that we have from 2013 and the the EF was only 20-25%. Patient is also noted to have a diagnosis of cardiomyopathy and is prescribed spironolactone/HCTZ, lasix, metoprolol ER. Plan: Medications were resumed today. Continue to monitor vital signs.
[2017-12-08] MEDS: MAG HYDROX/AL HYDROX/SIMETH 30 ML UDC PO SCH (22:40)
[2017-12-09] MEDS: NS W/20 MEQ KCL 1,000 ML IV SCH ×6 (00:39→19:08)
[2017-12-09] MEDS: SODIUM CHLORIDE FLUSH 0.9% 10 ML SYRINGE IVP SCH ×3 (00:43→15:56)
[2017-12-09] MEDS: HYDROmorphone 1 MG/ML CARPUJECT IVP PRN (00:48)
[2017-12-09] MEDS: metroNIDAZOLE 500 MG/100 ML 500 MG/100 ML BAG IV SCH (00:51)
[2017-12-09] MEDS: PIPERACILLIN/TAZOBACTAM 3.375 GM in SODIUM CHLORIDE 0.9% MINIBAG 100 ML IV SCH (02:27)
[2017-12-09] MEDS: MAG HYDROX/AL HYDROX/SIMETH 30 ML UDC PO SCH ×4 (04:38→22:14)
[2017-12-09 06:08] LABS: BASOPHILS % (AUTO) 0.4 %; EOSINOPHILS # (AUTO) 0.2 10^3/uL (0.0-0.7); EOSINOPHILS % (AUTO) 1.6 %; HGB - HEMOGLOBIN 11.9 g/dL (14.0-18.0); LYMPHOCYTES # (AUTO) 1.4 10^3/uL (1.5-3.5); LYMPHOCYTES % (AUTO) 14.4 %; MEAN CORPUSCULAR HEMOGLOBIN 30.2 pg (27.0-31.0); MEAN CORPUSCULAR HGB CONC 33.4 g/dL (32.0-36.0); MEAN CORPUSCULAR VOLUME 90.4 fL (80.0-94.0); MEAN PLATELET VOLUME 7.3 fL (7.4-11.4); MONOCYTES # (AUTO) 1.1 10^3/uL (0.0-1.0); MONOCYTES % (AUTO) 11.4 %; NEUTROPHILS # (AUTO) 7.2 10^3/uL (1.5-6.6); NEUTROPHILS % (AUTO) 72.2 %; PLT - PLATELET COUNT 244 10^3/uL (130-450); RED BLOOD COUNT 3.94 10^6/uL (4.70-6.10); RED CELL DISTRIBUTION WIDTH 13.2 % (12.0-15.0)
[2017-12-09 06:19] LABS: ALBUMIN 2.9 g/dL (3.2-5.5); ALKALINE PHOSPHATASE 35 IU/L (42-121); ALT ALANINE AMINOTRANSFERASE < 10 IU/L (10-60); AST ASPARTATE AMINOTRANSFERASE 11 IU/L (10-42); BILIRUBIN,TOTAL 0.8 mg/dL (0.2-1.0); BUN - BLOOD UREA NITROGEN 16 mg/dL (6-20); CALCIUM 8.3 mg/dL (8.5-10.3); CARBON DIOXIDE - CO2 18 mmol/L (21-32); CHLORIDE 110 mmol/L (101-111); CREATININE 1.5 mg/dL (0.6-1.2); GFR - MDRD 47 (>89); GLUCOSE 83 mg/dL (70-100); SODIUM 137 mmol/L (135-145); TOTAL PROTEIN 5.9 g/dL (6.7-8.2)
[2017-12-09] MEDS: PANTOPRAZOLE 40 MG TABLET PO SCH (06:55)
[2017-12-09] MEDS: IPRATROPIUM/ALBUTEROL 3 ML NEB INH SCH ×3 (07:14→22:10)
[2017-12-09] MEDS ORDERED: INDIGO CARMINE IVP ONE (07:55)
--- NOTE | 2017-12-09 08:08 | PROVIDER PROGRESS NOTE ---
Subjective - Prog Note Date Prog Note Date: 12/09/17 Prog Note Time: 08:00 - Subjective Pt reports feeling: Improved (pt is now pod2 from bad ruptured open appy- still with some hemoptysis-- v/q scan ordered- hospitalists helping with care- esperanza drainage has increased quite a bit- will get indigo carmine iv to be sure the color of urine compared to color of esperanza drainage, also pt says he has passed a good amount of gas--i am told wound looking good at am dressing today so will check wound next dressing-- also cultures growing klebsiella, not sensitive to zosyn so have dcd that and starting cipro and will keep flagyl,, strep that he is growing did not have sensitivity, but comment said it is usually sensitive to levaquin so the cipro should suffice-- all in all he sems to be improving-- await indigo carmine study and v/q scan and will sit tight for now-- afeb, wbc down to 10 k, cr still up at 1.5-- will monitor closely as the day goes along) Objective - Vital Signs/Intake & Output Vital Signs: Vital Signs x48h Temp Pulse Pulse Resp BP Pulse Ox 12/09/17 07:15 81 18 12/09/17 00:05 37.2 C 85 16 148/94 H 99 Intake & Output: Intake & Output 12/06/17 12/07/17 12/08/17 12/09/17 23:59 23:59 23:59 23:59 Intake Total 1200 2800 4400 330.0 Output Total 150 0194 098 6643 Balance 1050 1710 3450 -1050.0 - Lab Results Fish Bones: 12/09/17 05:38 12/09/17 05:38 Other Labs: Lab Results x24hrs 12/09/17 12/09/17 Range/Units 05:38 05:38 WBC 10.0 (4.8-10.8) x10^3/uL RBC 3.94 L (4.70-6.10) 10^6/uL Hgb 11.9 L (14.0-18.0) g/dL Hct 35.6 L (42.0-52.0) % MCV 90.4 (80.0-94.0) fL MCH 30.2 (27.0-31.0) pg MCHC 33.4 (32.0-36.0) g/dL RDW 13.2 (12.0-15.0) % Plt Count 244 (130-450) 10^3/uL MPV 7.3 L (7.4-11.4) fL Neut # 7.2 H (1.5-6.6) 10^3/uL Lymph # 1.4 L (1.5-3.5) 10^3/uL Hand # 1.1 H (0.0-1.0) 10^3/uL Eos # 0.2 (0.0-0.7) 10^3/uL Baso # 0.0 (0.0-0.1) 10^3/uL Absolute Nucleated RBC 0.01 x10^3/uL Nucleated RBC % 0.1 /100WBC Sodium 137 (135-145) mmol/L Potassium 4.3 (3.5-5.0) mmol/L Chloride 110 (101-111) mmol/L Carbon Dioxide 18 L (21-32) mmol/L Anion Gap 9.0 (6-13) BUN 16 (6-20) mg/dL Creatinine 1.5 H (0.6-1.2) mg/dL Estimated GFR (MDRD) 47 L (>89) Glucose 83 (70-100) mg/dL Calcium 8.3 L (8.5-10.3) mg/dL Total Bilirubin 0.8 (0.2-1.0) mg/dL AST 11 (10-42) IU/L ALT < 10 L (10-60) IU/L Alkaline Phosphatase 35 L (42-121) IU/L Total Protein 5.9 L (6.7-8.2) g/dL Albumin 2.9 L (3.2-5.5) g/dL Globulin 3.0 (2.1-4.2) g/dL Albumin/Globulin Ratio 1.0 (1.0-2.2)
[2017-12-09] MEDS: SACCHAROMYCES BOULARDII 250 MG CAPSULE PO SCH ×2 (08:38→15:56)
[2017-12-09] MEDS: HEPARIN 5,000 UNIT/ML VIAL SUBQ SCH ×3 (08:38→22:14)
[2017-12-09] MEDS: CIPROFLOXACIN 400 MG/200 ML 200 ML IV SCH ×2 (08:38→20:24)
[2017-12-09] MEDS: BACITRACIN/POLYMYXIN OPHTH OINT 3.5 GM RIGHTEYE SCH (08:45)
--- NOTE | 2017-12-09 11:02 | Nuclear Medicine Report ---
EXAM: VENTILATION/PERFUSION SCAN (V/Q SCAN) EXAM DATE: 12/09/2017 10:32 AM. CLINICAL HISTORY: Hemoptysis. COMPARISON: Chest radiograph 12/07/2017. TECHNIQUE: Patient was administered 40 mCi of technetium 99m DTPA aerosol by inhalation and 8 standar d ventilation images of the lungs were obtained. Next, the patient was injected with 5.2 mCi of techn etium 99m MAA intravenously and 8 standard perfusion images of the lungs were obtained. FINDINGS: Ventilation Scan: Heterogeneous ventilation pattern with central deposition of the air sliced radiotr acer. There is a small ventilation defect in the posterior left lower lobe. There is a small ventilat ion defect in the posterior right lower lobe. Perfusion Scan: Perfusion is more homogeneous than ventilation. There is a small matching perfusion d efect in the posterior left lower lobe. No mismatched perfusion defects are evident. IMPRESSION: Low probability study for acute pulmonary embolism. [facility] Referring Provider Line: [phone] SITE ID: [id number]
--- NOTE | 2017-12-09 13:44 | PROVIDER PROGRESS NOTE ---
Subjective - Prog Note Date Prog Note Date: 12/09/17 Prog Note Time: 13:40 - Subjective Pt reports feeling: Improved (pt doing ok, still passing gas, urine output appears to be picking up, cr level of urine is 10 times the level of drain fluid , so doubt any urine leak causing the increased esperanza drainage--actually leslie drain oputput, v/q scan shows lo probability of pe, -- all in all things appear to be looking better- also drain fluid appears to be decreasing--i visited with pt and ex girlfriend and they appear to understand the current situation-- if does ok till this evening will likely start cl liquids slowly and see how he tolerates that--will follow along) Objective - Vital Signs/Intake & Output Vital Signs: Vital Signs x48h Temp Pulse Pulse Resp BP Pulse Ox 12/09/17 12:30 84 18 12/09/17 08:01 37.0 C 94 18 153/98 H 96 12/09/17 07:15 81 18 Intake & Output: Intake & Output 12/06/17 12/07/17 12/08/17 12/09/17 23:59 23:59 23:59 23:59 Intake Total 1200 2800 4400 1400.0 Output Total 150 6713 137 8458 Balance 1050 1710 3450 -715.0 - Lab Results Fish Bones: 12/09/17 05:38 12/09/17 05:38 Other Labs: Lab Results x24hrs 12/09/17 12/09/17 12/09/17 Range/Units 11:04 10:18 05:38 WBC (4.8-10.8) x10^3/uL RBC (4.70-6.10) 10^6/uL Hgb (14.0-18.0) g/dL Hct (42.0-52.0) % MCV (80.0-94.0) fL MCH (27.0-31.0) pg MCHC (32.0-36.0) g/dL RDW (12.0-15.0) % Plt Count (130-450) 10^3/uL MPV (7.4-11.4) fL Neut # (1.5-6.6) 10^3/uL Lymph # (1.5-3.5) 10^3/uL [place] # (0.0-1.0) 10^3/uL Eos # (0.0-0.7) 10^3/uL Baso # (0.0-0.1) 10^3/uL Absolute Nucleated RBC x10^3/uL Nucleated RBC % /100WBC Sodium 137 (135-145) mmol/L Potassium 4.3 (3.5-5.0) mmol/L Chloride 110 (101-111) mmol/L Carbon Dioxide 18 L (21-32) mmol/L Anion Gap 9.0 (6-13) BUN 16 (6-20) mg/dL Creatinine 1.5 H (0.6-1.2) mg/dL Estimated GFR (MDRD) 47 L (>89) Glucose 83 (70-100) mg/dL Calcium 8.3 L (8.5-10.3) mg/dL Total Bilirubin 0.8 (0.2-1.0) mg/dL AST 11 (10-42) IU/L ALT < 10 L (10-60) IU/L Alkaline Phosphatase 35 L (42-121) IU/L Total Protein 5.9 L (6.7-8.2) g/dL Albumin 2.9 L (3.2-5.5) g/dL Globulin 3.0 (2.1-4.2) g/dL Albumin/Globulin Ratio 1.0 (1.0-2.2) Urine Creatinine 134.4 < 13.0 mg/dL 12/09/17 Range/Units 05:38 WBC 10.0 (4.8-10.8) x10^3/uL RBC 3.94 L (4.70-6.10) 10^6/uL Hgb 11.9 L (14.0-18.0) g/dL Hct 35.6 L (42.0-52.0) % MCV 90.4 (80.0-94.0) fL MCH 30.2 (27.0-31.0) pg MCHC 33.4 (32.0-36.0) g/dL RDW 13.2 (12.0-15.0) % Plt Count 244 (130-450) 10^3/uL MPV 7.3 L (7.4-11.4) fL Neut # 7.2 H (1.5-6.6) 10^3/uL Lymph # 1.4 L (1.5-3.5) 10^3/uL [place] # 1.1 H (0.0-1.0) 10^3/uL Eos # 0.2 (0.0-0.7) 10^3/uL Baso # 0.0 (0.0-0.1) 10^3/uL Absolute Nucleated RBC 0.01 x10^3/uL Nucleated RBC % 0.1 /100WBC Sodium (135-145) mmol/L Potassium (3.5-5.0) mmol/L Chloride (101-111) mmol/L Carbon Dioxide (21-32) mmol/L Anion Gap (6-13) BUN (6-20) mg/dL Creatinine (0.6-1.2) mg/dL Estimated GFR (MDRD) (>89) Glucose (70-100) mg/dL Calcium (8.5-10.3) mg/dL Total Bilirubin (0.2-1.0) mg/dL AST (10-42) IU/L ALT (10-60) IU/L Alkaline Phosphatase (42-121) IU/L Total Protein (6.7-8.2) g/dL Albumin (3.2-5.5) g/dL Globulin (2.1-4.2) g/dL Albumin/Globulin Ratio (1.0-2.2) Urine Creatinine mg/dL
[2017-12-09] MEDS: METOCLOPRAMIDE 10 MG/2 ML VIAL IVP SCH (20:24)
[2017-12-10] MEDS: IPRATROPIUM/ALBUTEROL 3 ML NEB INH SCH ×5 (00:22→21:10)
[2017-12-10] MEDS: METOCLOPRAMIDE 10 MG/2 ML VIAL IVP SCH ×4 (00:46→20:48)
[2017-12-10] MEDS: SODIUM CHLORIDE FLUSH 0.9% 10 ML SYRINGE IVP SCH ×3 (00:50→16:46)
[2017-12-10] MEDS: NS W/20 MEQ KCL 1,000 ML IV SCH ×3 (02:14→18:49)
[2017-12-10] MEDS: MAG HYDROX/AL HYDROX/SIMETH 30 ML UDC PO SCH ×4 (04:20→21:06)
[2017-12-10] MEDS: PANTOPRAZOLE 40 MG TABLET PO SCH (06:41)
--- NOTE | 2017-12-10 08:08 | PROVIDER PROGRESS NOTE ---
Subjective - Prog Note Date Prog Note Date: 12/10/17 Prog Note Time: 08:00 - Subjective Pt reports feeling: No change (pt is post op day 3 from complicated ruptured appy, growing klebsiella and strep for whic we adjusted antibiotics yesterday-- has had hi esperanza drain out put starting yesterday--total of 1765 out yesterday- clear, serous-- cr testing showed it it to be less than 13, while urine cr was 134 or so, so i do not believe the increased output represents a urine leak from surgery-- looks like he is starting to have uncreased urine output si i reduced his ivf to 125 last pm--pt wound looks good, will likely do secondary closure tomorrow,,he says he is passing gas, but no bm yet-- i hVE ORDERED ACUTE ABD SERIES TO LOOK AT BOWEL GAS PATTERN-- BELLY EXAM SHOWS DISTENSION, GOOD BOWEL SOUNDS, NO SPREADING PERITONITIS=- SOME TENDERNEDSS CONSISTENT WITH HIS INCISION-- all in all seems to be weathering the storm, but does not have gi continuity yet-- on reglan and maalox-- will encourage ambulation go over films and also await am labs-- he remains afebrile, had some hbp yesterday- will go over that with hospitalist team) Objective - Vital Signs/Intake & Output Vital Signs: Vital Signs x48h Temp Pulse Resp BP Pulse Ox 12/10/17 07:54 36.8 C 90 19 153/102 H 97 12/10/17 00:55 37.2 C 91 18 148/99 H 96 Intake & Output: Intake & Output 12/07/17 12/08/17 12/09/17 12/10/17 23:59 23:59 23:59 23:59 Intake Total 2800 4400 3162.083 Output Total 5863 127 0610 815 Balance 1710 3450 -102.917 -815 - Lab Results Fish Bones: 12/09/17 05:38 12/09/17 05:38 Other Labs: Lab Results x24hrs 12/09/17 12/09/17 Range/Units 11:04 10:18 Urine Creatinine 134.4 < 13.0 mg/dL
[2017-12-10] MEDS ORDERED: ROCURONIUM 50 MG/5 ML VIAL IVP ONE (08:40)
[2017-12-10] MEDS ORDERED: NEOSTIGMINE 1 MG/1 ML 10 ML MDV IVP ONE (08:40)
[2017-12-10] MEDS ORDERED: PROPOFOL 200 MG/20 ML VIAL IVP ONE (08:40)
[2017-12-10] MEDS ORDERED: ONDANSETRON 4 MG/2 ML VIAL IVP ONE (08:40)
[2017-12-10] MEDS ORDERED: DEXAMETHASONE 4 MG/ML VIAL IVP ONE (08:40)
[2017-12-10] MEDS ORDERED: MIDAZOLAM 2 MG/2 ML VIAL IVP ONE (08:40)
[2017-12-10] MEDS ORDERED: KETOROLAC 30 MG/ML VIAL IVP ONE (08:40)
[2017-12-10] MEDS ORDERED: PHENYLEPHRINE 10 MG/ML VIAL IV ONE (08:40)
[2017-12-10] MEDS ORDERED: LIDOCAINE-MPF 2% 5 ML VIAL IM ONE (08:40)
[2017-12-10] MEDS ORDERED: SUCCINYLCHOLINE 200 MG/10 ML VIAL IVP ONE (08:40)
[2017-12-10] MEDS ORDERED: fentaNYL 250 MCG/5 ML VIAL IVP ONE (08:40)
[2017-12-10] MEDS ORDERED: GLYCOPYRROLATE 1 MG/5 ML VIAL IVP ONE (08:40)
[2017-12-10] MEDS: HEPARIN 5,000 UNIT/ML VIAL SUBQ SCH ×2 (08:46→20:47)
[2017-12-10] MEDS: SACCHAROMYCES BOULARDII 250 MG CAPSULE PO SCH ×2 (08:47→16:45)
[2017-12-10 08:55] LABS: BASOPHILS # (AUTO) 0.1 10^3/uL (0.0-0.1); BASOPHILS % (AUTO) 0.8 %; EOSINOPHILS # (AUTO) 0.3 10^3/uL (0.0-0.7); EOSINOPHILS % (AUTO) 3.2 %; HGB - HEMOGLOBIN 13.7 g/dL (14.0-18.0); LYMPHOCYTES # (AUTO) 1.3 10^3/uL (1.5-3.5); LYMPHOCYTES % (AUTO) 14.1 %; MEAN CORPUSCULAR HEMOGLOBIN 30.3 pg (27.0-31.0); MEAN CORPUSCULAR HGB CONC 33.7 g/dL (32.0-36.0); MEAN CORPUSCULAR VOLUME 89.9 fL (80.0-94.0); MONOCYTES # (AUTO) 1.1 10^3/uL (0.0-1.0); MONOCYTES % (AUTO) 11.9 %; NEUTROPHILS # (AUTO) 6.6 10^3/uL (1.5-6.6); PLT - PLATELET COUNT 282 10^3/uL (130-450); RED BLOOD COUNT 4.52 10^6/uL (4.70-6.10); WHITE BLOOD COUNT 9.5 x10^3/uL (4.8-10.8)
[2017-12-10] MEDS: METOPROLOL SUCCINATE 50 MG TABLET PO SCH (08:59)
[2017-12-10] MEDS: CIPROFLOXACIN 400 MG/200 ML 200 ML IV SCH ×2 (09:00→19:46)
[2017-12-10] MEDS ORDERED: amLODIPine 5 MG TABLET PO SCH (09:00)
[2017-12-10] MEDS ORDERED: SPIRONOLACTONE 25 MG TABLET PO SCH (09:00)
[2017-12-10 09:01] LABS: ALBUMIN 2.8 g/dL (3.2-5.5); ALBUMIN/GLOBULIN RATIO 0.9 (1.0-2.2); BILIRUBIN,TOTAL 0.9 mg/dL (0.2-1.0); CALCIUM 8.4 mg/dL (8.5-10.3); CREATININE 1.3 mg/dL (0.6-1.2); TOTAL PROTEIN 5.8 g/dL (6.7-8.2)
--- NOTE | 2017-12-10 14:28 | XRAY Report ---
ACUTE ABDOMEN SERIES: 12/10/2017 CLINICAL INDICATION: Perforated appendectomy, distention. TECHNIQUE: Supine and upright views of the abdomen and a frontal view of the chest were obtained. COMPARISON: Frontal chest 12/07/2017. FINDINGS The cardiac silhouette is not enlarged. Linear atelectasis is seen at the bases. No effusion or pneumothorax is seen. There is gas throughout mildly distended large and small bowel loops, with gas seen down to the level of the surgical drain in the pelvis, likely representing ileus. No free intraperitoneal gas is appreciated on the upright film. Previous right hip pinning is stable. IMPRESSION: GASEOUS DISTENTION OF LARGE AND SMALL BOWEL LOOPS, WITH GAS SEEN TO THE LEVEL OF THE PELVIC DRAIN, MORE LIKELY REPRESENTING ILEUS. NO FREE GAS. BIBASILAR ATELECTASIS. TD: 12/10/2017 09:09
--- NOTE | 2017-12-10 16:14 | PROVIDER PROGRESS NOTE ---
Subjective - Prog Note Date Prog Note Date: 12/09/17 Prog Note Time: 08:00 - Subjective Pt reports feeling: Improved Subjective: Adán was sleepy during his exam today. He denies SOB, chest pain, or a new cough. He continues to wear oxygen. Current Medications - Current Medications Current Medications: Active Medications Al Hydroxide/Mg Hydroxide (Mylanta Plus) 30 ml PO Q6H [facility] Last Admin: 12/10/17 10:42 Dose: 30 ml Albuterol/Ipratropium (Duoneb) 3 ml INH Q4HR PRN PRN Reason: Wheezing Albuterol/Ipratropium (Duoneb) 3 ml INH RTQID [facility] Last Admin: 12/10/17 11:30 Dose: 3 ml Amlodipine Besylate (Norvasc) 5 mg PO DAILY [facility] Last Admin: 12/10/17 08:59 Dose: 5 mg Guaifenesin/Codeine Phosphate (Robitussin Ac) 5 ml PO Q6HR PRN PRN Reason: Cough Last Admin: 12/07/17 22:05 Dose: 5 ml Heparin Sodium (Porcine) () 5,000 unit SUBQ BID [facility] Last Admin: 12/10/17 08:46 Dose: 5,000 unit Hydromorphone HCl (Dilaudid Inj Carp) 1 mg IVP Q2HR PRN PRN Reason: SEVERE PAIN Last Admin: 12/09/17 00:48 Dose: 1 mg Ciprofloxacin (Cipro 400 Mg/200 Ml) 200 mls @ 200 mls/hr IV Q12H [facility] Last Infusion: 12/10/17 10:00 Dose: Infused Potassium Chloride/Sodium Chloride (Normal Saline 0.9% W/20 Meq Kcl) 1,000 mls @ 125 mls/hr IV .Q8H [facility] Last Admin: 12/10/17 10:43 Dose: 125 mls/hr Lorazepam (Ativan Inj (Vial)) 1 mg IVP Q2H PRN PRN Reason: Anxiety Last Admin: 12/08/17 01:53 Dose: 1 mg Metoclopramide HCl (Reglan Inj) 10 mg IVP Q6H [facility] Last Admin: 12/10/17 13:21 Dose: 10 mg Metoprolol Succinate (Toprol Xl) 100 mg PO DAILY [facility] Last Admin: 12/10/17 08:59 Dose: 100 mg Ondansetron HCl (Zofran Inj) 4 mg IVP Q6H PRN PRN Reason: Nausea / Vomiting Pantoprazole Sodium (Protonix) 40 mg PO QDAC [facility] Last Admin: 12/10/17 06:41 Dose: 40 mg Phenol/Menthol (Chloraseptic) 1 sprays MM Q2HR PRN PRN Reason: Throat Pain Saccharomyces Boulardii (Florastor) 500 mg PO BIDWM [facility] Last Admin: 12/10/17 08:47 Dose: 500 mg Sodium Chloride (Normal Saline Flush 0.9%) 10 ml IVP PRN PRN PRN Reason: NEEDED PER PROVIDER ORDERS Last Admin: 12/07/17 17:30 Dose: 10 ml Sodium Chloride (Normal Saline Flush 0.9%) 10 ml IVP 0100,0900,1700 [facility] Last Admin: 12/10/17 08:47 Dose: 10 ml Spironolactone (Aldactone) 12.5 mg PO DAILY [facility] Last Admin: 12/10/17 08:47 Dose: 12.5 mg Metoprolol Succinate 100 mg PO DAILY 12/06/17 Lisinopril 10 mg PO DAILY 12/07/17 Spironolactone 12.5 mg PO DAILY 12/07/17 raNITIdine HCl [Ranitidine HCl] 300 mg PO QPM PRN 12/07/17 Objective - Vital Signs/Intake & Output Reviewed Vital Signs: Yes Vital Signs: Vital Signs x48h Temp Pulse Pulse Resp BP Pulse Ox 12/10/17 11:40 781 H 16 12/10/17 07:54 36.8 C 90 19 153/102 H 97 Intake & Output: Intake & Output 12/07/17 12/08/17 12/09/17 12/10/17 23:59 23:59 23:59 23:59 Intake Total 2800 4400 3162.083 1200 Output Total 7816 543 8097 1395 Balance 1710 3450 -102.917 -195 - Objective General Appearance: positive: No acute distress, Alert, Anxious Eyes Bilateral: positive: Normal inspection, PERRL ENT: positive: ENT inspection nml, Pharynx nml, No signs of dehydration Neck: positive: Nml inspection, Thyroid nml, No JVD, Trachea midline Respiratory: positive: Chest non-tender, No respiratory distress, Other ( diminished bilaterally.) Cardiovascular: positive: Regular rate & rhythm, No gallop, Systolic murmur, Decreased pulse(s) Peripheral Pulses: 1+ Radial (R), 1+ Radial (L) Abdomen: positive: Tenderness, Guarding, Abnml bowel sounds, Other (rounded, soft, shinny, hypoactive bowel sounds.) Back: positive: Nml inspection Skin: positive: No rash, Warm, Dry, Pallor Extremities: positive: Non-tender, Full ROM, Nml appearance, No pedal edema Neurologic/Psychiatric: positive: Oriented x3, CN's nml (2-12), Motor nml, Sensation nml, Weakness, Depressed mood/affect Reflexes: Bicep (R): 3+, Bicep (L): 3+ - Lab Results Fish Bones: 12/10/17 08:40 12/10/17 08:40 Other Labs: Lab Results x24hrs 12/10/17 12/10/17 Range/Units 08:40 08:40 WBC 9.5 (4.8-10.8) x10^3/uL RBC 4.52 L (4.70-6.10) 10^6/uL Hgb 13.7 L (14.0-18.0) g/dL Hct 40.7 L (42.0-52.0) % MCV 89.9 (80.0-94.0) fL MCH 30.3 (27.0-31.0) pg MCHC 33.7 (32.0-36.0) g/dL RDW 13.0 (12.0-15.0) % Plt Count 282 (130-450) 10^3/uL MPV 7.0 L (7.4-11.4) fL Neut # 6.6 (1.5-6.6) 10^3/uL Lymph # 1.3 L (1.5-3.5) 10^3/uL [place] # 1.1 H (0.0-1.0) 10^3/uL Eos # 0.3 (0.0-0.7) 10^3/uL Baso # 0.1 (0.0-0.1) 10^3/uL Absolute Nucleated RBC 0.00 x10^3/uL Nucleated RBC % 0.0 /100WBC Sodium 136 (135-145) mmol/L Potassium 4.3 (3.5-5.0) mmol/L Chloride 111 (101-111) mmol/L Carbon Dioxide 18 L (21-32) mmol/L Anion Gap 7.0 (6-13) BUN 13 (6-20) mg/dL Creatinine 1.3 H (0.6-1.2) mg/dL Estimated GFR (MDRD) 55 L (>89) Glucose 107 H (70-100) mg/dL Calcium 8.4 L (8.5-10.3) mg/dL Total Bilirubin 0.9 (0.2-1.0) mg/dL AST 15 (10-42) IU/L ALT 10 (10-60) IU/L Alkaline Phosphatase 35 L (42-121) IU/L Total Protein 5.8 L (6.7-8.2) g/dL Albumin 2.8 L (3.2-5.5) g/dL Globulin 3.0 (2.1-4.2) g/dL Albumin/Globulin Ratio 0.9 L (1.0-2.2) - Diagnostic Imaging Diagnostic Imaging Results: positive: Final report reviewed Assessment/Plan - Problem List (1) Corneal abrasion, right Impression: Patient was found to have an acute corneal abrasion in his right outer eye, which became worse before applying a patch and giving ointment. This is much improved and is only slightly reddened today. No further needs for an eye patch. Plan: Continue to use an eye patch as needed for comfort and monitor. Qualifiers: Encounter type: initial encounter Qualified Code(s): S05.01XA - Injury of conjunctiva and corneal abrasion without foreign body, right eye, initial encounter (2) S/P appendectomy Impression: Patient underwent an open appendectomy with drain placement for a perforated appendicitis with Dr. Le general surgery on 12/07/17 and this has been a slow recovery. Patient has been afebrile with no known complications to date. Plan: Continue to monitor for infection and assist with pain control medications if needed. (3) Methamphetamine abuse Impression: Patient does not admit to this when asked, but it is known per chart review that he has been dependent for some time. At the time of admission, he was found to be positive for opiates, oxycodone, amphetamine, methamphetamines, and cannabinoids. Plan: Encourage cessation, monitor visitors, and offer AODA services upon discharge. (4) Ruptured appendicitis Impression: At the time of admission the patient admitted to a 3 day history of constant nonmigratory right lower quadrant pain that became worse with movement. Associated symptoms are constipation and mild nausea. He denies previous abdominal surgeries other than and umbilical hernia repair in the past. As per imaging, this was suspicious for a ruptured appendicitis. Plan: Patient is now post op day #3 and we will continue to monitor. (5) SIMBA (acute kidney injury) Impression: Patient is known to have CKD per chart review. GFR was low at 38 at the time of admission and improved further at 55. Creatinine on admission was elevated at 1.8, and remains stable at 1.3. Plan: We will continue IV antibiotics given the potential of infection and monitor vital signs and daily labs. (6) Pulmonary hypertension Impression: Patient has indicated that he has never been a tobacco user, but is a known drug addict with life long addiction. Many of these substances are likely inhaled or ingested. He was most recently + for marijuana. He continues to use oxygen at 2-3L per nasal cannula and his abdomen remains distended. Plan: Sprionolactone remains at 12.5mg dialy and we will continue to monitor. (7) Chronic systolic heart failure Impression: Per chart review as per a clinic note dated 10/25/17. The patient sees a sea foam kiss maker at [facility] Dr. Boone Grace. ECHO 06/08- EF 60-65%, mild LVH , mild to mod AVR, moderate mitral regurg and this is greatly improved from the latest echo that we have from 2013 and the the EF was only 20-25%. Patient is also noted to have a diagnosis of cardiomyopathy and is prescribed spironolactone/HCTZ, lasix, metoprolol ER. Plan: Metoprolol is being given. Continue to monitor vital signs. (8) Hypertension Impression: Patient has a history of hypertension and is prescribed lisinopril daily. This has been on hold since the time of admission and post-operatively due to SIMBA. Today blood pressure remains elevated with a blood pressure of 153/98 and 157/ 109. Norvasc daily was added at 5mg PO. Plan: Continue antihypertensives and monitor vital signs. Will plan to add an additional agent if this does not improve.
--- NOTE | 2017-12-10 16:34 | PROVIDER PROGRESS NOTE ---
Subjective - Prog Note Date Prog Note Date: 12/10/17 Prog Note Time: 14:00 - Subjective Pt reports feeling: No change Subjective: Don expresses frustration about not being able to return home yet and not eating yet. He denies SOB, chest pain, N/V or a new cough. Current Medications - Current Medications Current Medications: Active Medications Al Hydroxide/Mg Hydroxide (Mylanta Plus) 30 ml PO Q6H [facility] Last Admin: 12/10/17 16:46 Dose: 30 ml Albuterol/Ipratropium (Duoneb) 3 ml INH Q4HR PRN PRN Reason: Wheezing Albuterol/Ipratropium (Duoneb) 3 ml INH RTQID [facility] Last Admin: 12/10/17 11:30 Dose: 3 ml Amlodipine Besylate (Norvasc) 10 mg PO DAILY [facility] Guaifenesin/Codeine Phosphate (Robitussin Ac) 5 ml PO Q6HR PRN PRN Reason: Cough Last Admin: 12/07/17 22:05 Dose: 5 ml Heparin Sodium (Porcine) () 5,000 unit SUBQ BID [facility] Last Admin: 12/10/17 08:46 Dose: 5,000 unit Hydromorphone HCl (Dilaudid Inj Carp) 1 mg IVP Q2HR PRN PRN Reason: SEVERE PAIN Last Admin: 12/09/17 00:48 Dose: 1 mg Ciprofloxacin (Cipro 400 Mg/200 Ml) 200 mls @ 200 mls/hr IV Q12H [facility] Last Infusion: 12/10/17 10:00 Dose: Infused Potassium Chloride/Sodium Chloride (Normal Saline 0.9% W/20 Meq Kcl) 1,000 mls @ 125 mls/hr IV .Q8H [facility] Last Admin: 12/10/17 10:43 Dose: 125 mls/hr Lorazepam (Ativan Inj (Vial)) 1 mg IVP Q2H PRN PRN Reason: Anxiety Last Admin: 12/08/17 01:53 Dose: 1 mg Metoclopramide HCl (Reglan Inj) 10 mg IVP Q6H [facility] Last Admin: 12/10/17 13:21 Dose: 10 mg Metoprolol Succinate (Toprol Xl) 100 mg PO DAILY [facility] Last Admin: 12/10/17 08:59 Dose: 100 mg Ondansetron HCl (Zofran Inj) 4 mg IVP Q6H PRN PRN Reason: Nausea / Vomiting Pantoprazole Sodium (Protonix) 40 mg PO QDAC [facility] Last Admin: 12/10/17 06:41 Dose: 40 mg Phenol/Menthol (Chloraseptic) 1 sprays MM Q2HR PRN PRN Reason: Throat Pain Saccharomyces Boulardii (Florastor) 500 mg PO BIDWM [facility] Last Admin: 12/10/17 16:45 Dose: 500 mg Sodium Chloride (Normal Saline Flush 0.9%) 10 ml IVP PRN PRN PRN Reason: NEEDED PER PROVIDER ORDERS Last Admin: 12/07/17 17:30 Dose: 10 ml Sodium Chloride (Normal Saline Flush 0.9%) 10 ml IVP 0100,0900,1700 [facility] Last Admin: 12/10/17 16:46 Dose: 10 ml Spironolactone (Aldactone) 25 mg PO DAILY [facility] Metoprolol Succinate 100 mg PO DAILY 12/06/17 Lisinopril 10 mg PO DAILY 12/07/17 Spironolactone 12.5 mg PO DAILY 12/07/17 raNITIdine HCl [Ranitidine HCl] 300 mg PO QPM PRN 12/07/17 Objective - Vital Signs/Intake & Output Reviewed Vital Signs: Yes Vital Signs: Vital Signs x48h Temp Pulse Pulse Resp BP Pulse Ox 12/10/17 16:03 37.0 C 72 18 142/91 H 94 12/10/17 11:40 781 H 16 Intake & Output: Intake & Output 12/07/17 12/08/17 12/09/17 12/10/17 23:59 23:59 23:59 23:59 Intake Total 2800 4400 3162.083 1200 Output Total 7035 820 4496 1675 Balance 1710 3450 -102.917 -475 - Objective General Appearance: positive: No acute distress, Alert Eyes Bilateral: positive: Normal inspection, PERRL ENT: positive: ENT inspection nml, Pharynx nml, No signs of dehydration Neck: positive: Nml inspection, Thyroid nml, No JVD, Trachea midline, Stiff neck Respiratory: positive: Chest non-tender, No respiratory distress, Breath sounds nml, Other (diminshed bilaterally.) Cardiovascular: positive: Regular rate & rhythm, No gallop, Systolic murmur, Decreased pulse(s) Peripheral Pulses: 2+ Radial (R), 2+ Radial (L) Abdomen: positive: Tenderness, Guarding, Abnml bowel sounds, Other (abdominal skin is shinny in appearance and hypoactive in all 4 quadrents.) Back: positive: Nml inspection Skin: positive: No rash, Warm, Dry Extremities: positive: Non-tender, Full ROM, Nml appearance, No pedal edema Neurologic/Psychiatric: positive: Oriented x3, CN's nml (2-12), Motor nml, Sensation nml, Depressed mood/affect Reflexes: Bicep (R): 2+, Bicep (L): 2+ - Lab Results Fish Bones: 12/10/17 08:40 12/10/17 08:40 Other Labs: Lab Results x24hrs 12/10/17 12/10/17 Range/Units 08:40 08:40 WBC 9.5 (4.8-10.8) x10^3/uL RBC 4.52 L (4.70-6.10) 10^6/uL Hgb 13.7 L (14.0-18.0) g/dL Hct 40.7 L (42.0-52.0) % MCV 89.9 (80.0-94.0) fL MCH 30.3 (27.0-31.0) pg MCHC 33.7 (32.0-36.0) g/dL RDW 13.0 (12.0-15.0) % Plt Count 282 (130-450) 10^3/uL MPV 7.0 L (7.4-11.4) fL Neut # 6.6 (1.5-6.6) 10^3/uL Lymph # 1.3 L (1.5-3.5) 10^3/uL [place] # 1.1 H (0.0-1.0) 10^3/uL Eos # 0.3 (0.0-0.7) 10^3/uL Baso # 0.1 (0.0-0.1) 10^3/uL Absolute Nucleated RBC 0.00 x10^3/uL Nucleated RBC % 0.0 /100WBC Sodium 136 (135-145) mmol/L Potassium 4.3 (3.5-5.0) mmol/L Chloride 111 (101-111) mmol/L Carbon Dioxide 18 L (21-32) mmol/L Anion Gap 7.0 (6-13) BUN 13 (6-20) mg/dL Creatinine 1.3 H (0.6-1.2) mg/dL Estimated GFR (MDRD) 55 L (>89) Glucose 107 H (70-100) mg/dL Calcium 8.4 L (8.5-10.3) mg/dL Total Bilirubin 0.9 (0.2-1.0) mg/dL AST 15 (10-42) IU/L ALT 10 (10-60) IU/L Alkaline Phosphatase 35 L (42-121) IU/L Total Protein 5.8 L (6.7-8.2) g/dL Albumin 2.8 L (3.2-5.5) g/dL Globulin 3.0 (2.1-4.2) g/dL Albumin/Globulin Ratio 0.9 L (1.0-2.2) - Diagnostic Imaging Diagnostic Imaging Results: positive: Final report reviewed Assessment/Plan - Problem List (1) Corneal abrasion, right Impression: This is nearly completely resolved and the patient denies blurred vision or any halfway effects from this trauma. Patient was found to have an acute corneal abrasion in his right outer eye, which became worse before applying a patch and giving ointment. This is much improved and is only slightly reddened today. Patient denies any further symptoms and has not needed to use the eye patch for the past few days. Plan: Continue to monitor. Qualifiers: Encounter type: initial encounter Qualified Code(s): S05.01XA - Injury of conjunctiva and corneal abrasion without foreign body, right eye, initial encounter (2) S/P appendectomy Impression: Patient underwent an open appendectomy with drain placement for a perforated appendicitis with Dr. Le general surgery on 12/07/17 and this has been a slow recovery. Patient has been afebrile. He states that he wishes to "eat food". He admits to having a BM today x1, with flatus. He denies heartburn, nausea or vomiting. He continues on IV cipro based on sensitivities and we will monitor daily ESR/CRP levels with labs. Plan: Continue to monitor for infection and assist with pain control medications if needed. (3) Methamphetamine abuse Impression: Patient does not admit to this when asked, but it is known per chart review that he has been dependent for some time. At the time of admission, he was found to be positive for opiates, oxycodone, amphetamine, methamphetamines, and cannabinoids. Plan: Encourage cessation, monitor visitors, and offer AODA services upon discharge. (4) Ruptured appendicitis Impression: At the time of admission the patient admitted to a 3 day history of constant nonmigratory right lower quadrant pain that became worse with movement. Associated symptoms are constipation and mild nausea. He denies previous abdominal surgeries other than and umbilical hernia repair in the past. As per imaging, this was suspicious for a ruptured appendicitis. Patient's wound remains open with daily wet-to-dry packing as per surgery. Plan: Patient is now post op day #4 and we will continue to monitor. (5) SIMBA (acute kidney injury) Impression: Patient is known to have CKD per chart review. GFR was low at 38 at the time of admission and improved further at 55. Creatinine on admission was elevated at 1.8, and remains stable at 1.3. Antibiotics were slightly adjusted based on sensitivities. Plan: We will continue IV antibiotics given the potential of infection and monitor vital signs and daily labs. (6) Pulmonary hypertension Impression: Patient has indicated that he has never been a tobacco user, but is a known drug addict with life long addiction. Many of these substances are likely inhaled or ingested. He was most recently + for marijuana. He continues to use oxygen at 2-3L per nasal cannula and his abdomen remains distended. Plan: Sprionolactone remains at 12.5mg dialy and we will continue to monitor. (7) Chronic systolic heart failure Impression: Per chart review as per a clinic note dated 10/25/17. The patient sees a salt miner at [facility] Dr. Boone Grace. ECHO 06/08- EF 60-65%, mild LVH , mild to mod AVR, moderate mitral regurg and this is greatly improved from the latest echo that we have from 2013 and the the EF was only 20-25%. Patient is also noted to have a diagnosis of cardiomyopathy and is prescribed spironolactone/HCTZ, lasix, metoprolol ER. Plan: Metoprolol is being given, but diuretics remain on hold due to NPO status. Continue to monitor vital signs. (8) Hypertension Impression: Patient has a history of hypertension and is prescribed lisinopril daily. This has been on hold since the time of admission and post-operatively due to SIMBA. Today blood pressure remains elevated with a blood pressure of 142/91. Norvasc daily was added at 5mg PO and will be increased to 10mg daily based on little improvement of blood pressure. Sprionolactone was also increased based on distended abdomen and the worry of increased pulmonary pressures as he remains on oxygen. Plan: Continue antihypertensives and monitor vital signs. Will plan to add an additional agent if this does not improve. Qualifiers: Hypertension type: essential hypertension Qualified Code(s): I10 - Essential (primary) hypertension
--- NOTE | 2017-12-10 18:04 | PROVIDER PROGRESS NOTE ---
Subjective - Prog Note Date Prog Note Date: 12/10/17 Prog Note Time: 18:00 - Subjective Pt reports feeling: Improved (pt relates 2 bowel movements today, putting quite alot out of esperanza, clear swrous, making good urine- says he is hungry-- acute abd series this am showed air in colon and sm b., some sm b dilation--not very much thoiugh-- he has active bowel tones-- will decrease ivf to 100, start clear liquid diet- encouraged him to consume the tray slowly over an hour or two-- if he does ok on cl liq tonite, and tomorrow am breakfast will likely adv to full l;iq lunch time and get him on po meds for pain, maalox and reglan with an eye toward possible discharge if he does ok) Objective - Vital Signs/Intake & Output Vital Signs: Vital Signs x48h Temp Pulse Pulse Resp BP Pulse Ox 12/10/17 16:45 67 22 12/10/17 16:03 37.0 C 72 18 142/91 H 94 12/10/17 11:40 781 H 16 Intake & Output: Intake & Output 12/07/17 12/08/17 12/09/17 12/10/17 23:59 23:59 23:59 23:59 Intake Total 2800 4400 3162.083 1200 Output Total 8247 811 4526 1675 Balance 1710 3450 -102.917 -475 - Lab Results Fish Bones: 12/10/17 08:40 12/10/17 08:40 Other Labs: Lab Results x24hrs 12/10/17 12/10/17 Range/Units 08:40 08:40 WBC 9.5 (4.8-10.8) x10^3/uL RBC 4.52 L (4.70-6.10) 10^6/uL Hgb 13.7 L (14.0-18.0) g/dL Hct 40.7 L (42.0-52.0) % MCV 89.9 (80.0-94.0) fL MCH 30.3 (27.0-31.0) pg MCHC 33.7 (32.0-36.0) g/dL RDW 13.0 (12.0-15.0) % Plt Count 282 (130-450) 10^3/uL MPV 7.0 L (7.4-11.4) fL Neut # 6.6 (1.5-6.6) 10^3/uL Lymph # 1.3 L (1.5-3.5) 10^3/uL [place] # 1.1 H (0.0-1.0) 10^3/uL Eos # 0.3 (0.0-0.7) 10^3/uL Baso # 0.1 (0.0-0.1) 10^3/uL Absolute Nucleated RBC 0.00 x10^3/uL Nucleated RBC % 0.0 /100WBC Sodium 136 (135-145) mmol/L Potassium 4.3 (3.5-5.0) mmol/L Chloride 111 (101-111) mmol/L Carbon Dioxide 18 L (21-32) mmol/L Anion Gap 7.0 (6-13) BUN 13 (6-20) mg/dL Creatinine 1.3 H (0.6-1.2) mg/dL Estimated GFR (MDRD) 55 L (>89) Glucose 107 H (70-100) mg/dL Calcium 8.4 L (8.5-10.3) mg/dL Total Bilirubin 0.9 (0.2-1.0) mg/dL AST 15 (10-42) IU/L ALT 10 (10-60) IU/L Alkaline Phosphatase 35 L (42-121) IU/L Total Protein 5.8 L (6.7-8.2) g/dL Albumin 2.8 L (3.2-5.5) g/dL Globulin 3.0 (2.1-4.2) g/dL Albumin/Globulin Ratio 0.9 L (1.0-2.2)
[2017-12-11] MEDS: METOCLOPRAMIDE 10 MG/2 ML VIAL IVP SCH ×2 (01:28→06:48)
[2017-12-11] MEDS: SODIUM CHLORIDE FLUSH 0.9% 10 ML SYRINGE IVP SCH ×4 (01:29→20:48)
[2017-12-11] MEDS: MAG HYDROX/AL HYDROX/SIMETH 30 ML UDC PO SCH (05:49)
[2017-12-11 06:30] LABS: BASOPHILS # (AUTO) 0.1 10^3/uL (0.0-0.1); EOSINOPHILS # (AUTO) 0.4 10^3/uL (0.0-0.7); EOSINOPHILS % (AUTO) 4.5 %; HGB - HEMOGLOBIN 12.5 g/dL (14.0-18.0); LYMPHOCYTES # (AUTO) 1.6 10^3/uL (1.5-3.5); LYMPHOCYTES % (AUTO) 17.4 %; MEAN CORPUSCULAR HEMOGLOBIN 29.9 pg (27.0-31.0); MEAN CORPUSCULAR HGB CONC 33.5 g/dL (32.0-36.0); MEAN CORPUSCULAR VOLUME 89.2 fL (80.0-94.0); MONOCYTES % (AUTO) 10.7 %; NEUTROPHILS # (AUTO) 6.1 10^3/uL (1.5-6.6); NEUTROPHILS % (AUTO) 66.4 %; PLT - PLATELET COUNT 281 10^3/uL (130-450); RED BLOOD COUNT 4.19 10^6/uL (4.70-6.10); RED CELL DISTRIBUTION WIDTH 13.1 % (12.0-15.0); WHITE BLOOD COUNT 9.1 x10^3/uL (4.8-10.8)
[2017-12-11] MEDS: PANTOPRAZOLE 40 MG TABLET PO SCH (06:48)
[2017-12-11 06:49] LABS: ALBUMIN 2.5 g/dL (3.2-5.5); BILIRUBIN,TOTAL 0.6 mg/dL (0.2-1.0); CALCIUM 8.2 mg/dL (8.5-10.3); CREATININE 1.1 mg/dL (0.6-1.2); MAGNESIUM 1.7 mg/dL (1.7-2.8); TOTAL PROTEIN 5.1 g/dL (6.7-8.2)
[2017-12-11] MEDS: NS W/20 MEQ KCL 1,000 ML IV SCH (06:51)
[2017-12-11] MEDS: IPRATROPIUM/ALBUTEROL 3 ML NEB INH SCH (07:07)
[2017-12-11] MEDS ORDERED: NS W/20 MEQ KCL 1,000 ML IV SCH ×2 (07:49→15:42)
[2017-12-11] MEDS ORDERED: LIDOCAINE 1%-EPI 1:100000 30 ML MDV SUBQ ONE (07:57)
--- NOTE | 2017-12-11 08:03 | PROVIDER PROGRESS NOTE ---
Subjective - Prog Note Date Prog Note Date: 12/11/17 Prog Note Time: 08:00 - Subjective Pt reports feeling: Improved (vss, afeb, starting to diurese some, had at least 2 bms yesterday, passing gas, abd appears less distended, esperanza drain clear serous, still fsair amount of drainage- 1060 last 24 hr down from 1700 rqnge- bp and hr ok-- i plan to do secondary closure of wound today, decrease ivf to75 ml/hr, see how he does over the day, will make reglan po and maalox achs, after wound closure will likely switch to po pain meds-- if he does well today may be able to discharge him tomorrow...) Objective - Vital Signs/Intake & Output Vital Signs: Vital Signs x48h Temp Pulse Pulse Resp BP Pulse Ox 12/11/17 07:49 36.4 C L 75 20 144/94 H 97 12/11/17 07:10 70 18 12/11/17 01:41 37.5 C 67 16 147/95 H 97 Intake & Output: Intake & Output 12/08/17 12/09/17 12/10/17 12/11/17 23:59 23:59 23:59 23:59 Intake Total 4400 3162.083 2483.333 916.667 Output Total 950 3265 2486 970 Balance 3450 -102.917 -2.667 -53.333 - Lab Results Fish Bones: 12/11/17 05:44 12/11/17 05:44 Other Labs: Lab Results x24hrs 12/11/17 12/11/17 12/11/17 Range/Units 05:44 05:44 05:44 WBC 9.1 (4.8-10.8) x10^3/uL RBC 4.19 L (4.70-6.10) 10^6/uL Hgb 12.5 L (14.0-18.0) g/dL Hct 37.4 L (42.0-52.0) % MCV 89.2 (80.0-94.0) fL MCH 29.9 (27.0-31.0) pg MCHC 33.5 (32.0-36.0) g/dL RDW 13.1 (12.0-15.0) % Plt Count 281 (130-450) 10^3/uL MPV 7.0 L (7.4-11.4) fL Neut # 6.1 (1.5-6.6) 10^3/uL Lymph # 1.6 (1.5-3.5) 10^3/uL [place] # 1.0 (0.0-1.0) 10^3/uL Eos # 0.4 (0.0-0.7) 10^3/uL Baso # 0.1 (0.0-0.1) 10^3/uL Absolute Nucleated RBC 0.00 x10^3/uL Nucleated RBC % 0.0 /100WBC ESR 12 (0-20) mm/Hr Sodium 136 (135-145) mmol/L Potassium 4.3 (3.5-5.0) mmol/L Chloride 109 (101-111) mmol/L Carbon Dioxide 21 (21-32) mmol/L Anion Gap 6.0 (6-13) BUN 10 (6-20) mg/dL Creatinine 1.1 (0.6-1.2) mg/dL Estimated GFR (MDRD) 67 L (>89) Glucose 95 (70-100) mg/dL Calcium 8.2 L (8.5-10.3) mg/dL Magnesium 1.7 (1.7-2.8) mg/dL Total Bilirubin 0.6 (0.2-1.0) mg/dL AST 21 (10-42) IU/L ALT 15 (10-60) IU/L Alkaline Phosphatase 35 L (42-121) IU/L C-Reactive Protein 4.0 H (0-1.0) mg/dL Total Protein 5.1 L (6.7-8.2) g/dL Albumin 2.5 L (3.2-5.5) g/dL Globulin 2.6 (2.1-4.2) g/dL Albumin/Globulin Ratio 1.0 (1.0-2.2) 12/10/17 12/10/17 Range/Units 08:40 08:40 WBC 9.5 (4.8-10.8) x10^3/uL RBC 4.52 L (4.70-6.10) 10^6/uL Hgb 13.7 L (14.0-18.0) g/dL Hct 40.7 L (42.0-52.0) % MCV 89.9 (80.0-94.0) fL MCH 30.3 (27.0-31.0) pg MCHC 33.7 (32.0-36.0) g/dL RDW 13.0 (12.0-15.0) % Plt Count 282 (130-450) 10^3/uL MPV 7.0 L (7.4-11.4) fL Neut # 6.6 (1.5-6.6) 10^3/uL Lymph # 1.3 L (1.5-3.5) 10^3/uL [place] # 1.1 H (0.0-1.0) 10^3/uL Eos # 0.3 (0.0-0.7) 10^3/uL Baso # 0.1 (0.0-0.1) 10^3/uL Absolute Nucleated RBC 0.00 x10^3/uL Nucleated RBC % 0.0 /100WBC ESR (0-20) mm/Hr Sodium 136 (135-145) mmol/L Potassium 4.3 (3.5-5.0) mmol/L Chloride 111 (101-111) mmol/L Carbon Dioxide 18 L (21-32) mmol/L Anion Gap 7.0 (6-13) BUN 13 (6-20) mg/dL Creatinine 1.3 H (0.6-1.2) mg/dL Estimated GFR (MDRD) 55 L (>89) Glucose 107 H (70-100) mg/dL Calcium 8.4 L (8.5-10.3) mg/dL Magnesium (1.7-2.8) mg/dL Total Bilirubin 0.9 (0.2-1.0) mg/dL AST 15 (10-42) IU/L ALT 10 (10-60) IU/L Alkaline Phosphatase 35 L (42-121) IU/L C-Reactive Protein (0-1.0) mg/dL Total Protein 5.8 L (6.7-8.2) g/dL Albumin 2.8 L (3.2-5.5) g/dL Globulin 3.0 (2.1-4.2) g/dL Albumin/Globulin Ratio 0.9 L (1.0-2.2)
[2017-12-11] MEDS: SACCHAROMYCES BOULARDII 250 MG CAPSULE PO SCH ×2 (08:35→17:19)
[2017-12-11] MEDS: amLODIPine 5 MG TABLET PO SCH (08:36)
[2017-12-11] MEDS: CIPROFLOXACIN 400 MG/200 ML 200 ML IV SCH ×2 (08:36→20:48)
[2017-12-11] MEDS: HYDROmorphone 1 MG/ML CARPUJECT IVP PRN (08:37)
[2017-12-11] MEDS: SPIRONOLACTONE 25 MG TABLET PO SCH (08:37)
[2017-12-11] MEDS: HEPARIN 5,000 UNIT/ML VIAL SUBQ SCH ×2 (08:50→20:55)
[2017-12-11] MEDS: METOPROLOL SUCCINATE 50 MG TABLET PO SCH (08:50)
--- NOTE | 2017-12-11 09:39 | PROCEDURE REPORT ---
DATE OF SERVICE: Physician: Guevara Le MD DATE OF PROCEDURE: 12/11/2017 PROCEDURE PERFORMED: Secondary closure of open appendectomy wound. INDICATIONS FOR PROCEDURE: It looks like he is doing well and the wound looks good, and it is my experience that secondary closure helps with earlier discharge. DESCRIPTION OF PROCEDURE: Informed consent was obtained from the patient. He had previously been premedicated with IV Dilaudid, which had been previously ordered, and that had been on board for about 15 minutes. I took the dressing out of the open wound and then I used Betadine swabs to swab the skin and the inside of the wound, and then I dariel up 20 mL of 1% Xylocaine with epinephrine 1:100,000, and used a 23-gauge needle to inject that into the subcutaneous tissue of the wound superiorly and inferiorly. He, at the time of surgery, had preplaced far-far/near-near 2-0 Prolene sutures for potential secondary closure. Once that was allowed to sit there for a few minutes, I again swabbed the wound on the outside and the inside with the Betadine swabs, and I did that with sterile gloves on. I had 7.5 sterile gloves on. I then picked the sutures up that had been placed previously and secured them serially from medial to lateral. Once that was done, I wiped the wound off with a dry 4 x 4, and I applied half-inch Steri-Strips to again achieve skin apposition. The patient tolerated it well. I told the nurses to rub Betadine swab sticks on the wound b.i.d. and put dry dressings on. We will follow him closely and with a little bit of luck we will get his intra-abdominal drain out tomorrow and hopefully discharge him tomorrow. TD: 12/11/2017 09:38
[2017-12-11] MEDS ORDERED: MAG HYDROX/AL HYDROX/SIMETH 30 ML UDC PO SCH (11:00)
[2017-12-11] MEDS: METOCLOPRAMIDE 10 MG TABLET PO SCH ×3 (12:42→20:53)
--- NOTE | 2017-12-11 14:16 | PROVIDER PROGRESS NOTE ---
Subjective - Prog Note Date Prog Note Date: 12/11/17 Prog Note Time: 14:14 - Subjective Pt reports feeling: Improved Subjective: Arnol is encouraged about the possibility of returning home tomorrow. He denies SOB, chest pain, N/V or a new cough. He is tolerating his advancing diet. Current Medications - Current Medications Current Medications: Active Medications Al Hydroxide/Mg Hydroxide (Mylanta Plus) 30 ml PO ACHS [facility] Last Admin: 12/11/17 12:42 Dose: 30 ml Albuterol/Ipratropium (Duoneb) 3 ml INH Q4HR PRN PRN Reason: Wheezing Albuterol/Ipratropium (Duoneb) 3 ml INH RTQID [facility] Last Admin: 12/11/17 07:07 Dose: 3 ml Amlodipine Besylate (Norvasc) 10 mg PO DAILY [facility] Last Admin: 12/11/17 08:36 Dose: 10 mg Guaifenesin/Codeine Phosphate (Robitussin Ac) 5 ml PO Q6HR PRN PRN Reason: Cough Last Admin: 12/07/17 22:05 Dose: 5 ml Heparin Sodium (Porcine) () 5,000 unit SUBQ BID [facility] Last Admin: 12/11/17 08:50 Dose: 5,000 unit Hydralazine HCl (Apresoline) 25 mg PO QID [facility] Hydromorphone HCl (Dilaudid Inj Carp) 1 mg IVP Q2HR PRN PRN Reason: SEVERE PAIN Last Admin: 12/11/17 08:37 Dose: 1 mg Ciprofloxacin (Cipro 400 Mg/200 Ml) 200 mls @ 200 mls/hr IV Q12H [facility] Last Admin: 12/11/17 08:36 Dose: 250 mls/hr Potassium Chloride/Sodium Chloride (Normal Saline 0.9% W/20 Meq Kcl) 1,000 mls @ 75 mls/hr IV .[id number] [facility] Last Admin: 12/11/17 08:37 Dose: 75 mls/hr Lorazepam (Ativan Inj (Vial)) 1 mg IVP Q2H PRN PRN Reason: Anxiety Last Admin: 12/08/17 01:53 Dose: 1 mg Metoclopramide HCl (Reglan) 10 mg PO ACHS [facility] Last Admin: 12/11/17 12:42 Dose: 10 mg Metoprolol Succinate (Toprol Xl) 100 mg PO DAILY [facility] Last Admin: 12/11/17 08:50 Dose: 100 mg Ondansetron HCl (Zofran Inj) 4 mg IVP Q6H PRN PRN Reason: Nausea / Vomiting Pantoprazole Sodium (Protonix) 40 mg PO QDAC [facility] Last Admin: 12/11/17 06:48 Dose: 40 mg Phenol/Menthol (Chloraseptic) 1 sprays MM Q2HR PRN PRN Reason: Throat Pain Saccharomyces Boulardii (Florastor) 500 mg PO BIDWM [facility] Last Admin: 12/11/17 08:35 Dose: 500 mg Sodium Chloride (Normal Saline Flush 0.9%) 10 ml IVP PRN PRN PRN Reason: NEEDED PER PROVIDER ORDERS Last Admin: 12/07/17 17:30 Dose: 10 ml Sodium Chloride (Normal Saline Flush 0.9%) 10 ml IVP 0100,0900,1700 [facility] Last Admin: 12/11/17 08:51 Dose: Not Given Spironolactone (Aldactone) 25 mg PO DAILY [facility] Last Admin: 12/11/17 08:37 Dose: 25 mg Metoprolol Succinate 100 mg PO DAILY 12/06/17 Lisinopril 10 mg PO DAILY 12/07/17 Spironolactone 12.5 mg PO DAILY 12/07/17 raNITIdine HCl [Ranitidine HCl] 300 mg PO QPM PRN 12/07/17 Objective - Vital Signs/Intake & Output Reviewed Vital Signs: Yes Vital Signs: Vital Signs x48h Temp Pulse Pulse Resp BP Pulse Ox 12/11/17 07:49 36.4 C L 75 20 144/94 H 97 12/11/17 07:10 70 18 Intake & Output: Intake & Output 12/08/17 12/09/17 12/10/17 12/11/17 23:59 23:59 23:59 23:59 Intake Total 4400 3162.083 2483.333 1516.667 Output Total 950 3265 2486 1060 Balance 3450 -102.917 -2.667 456.667 - Objective General Appearance: positive: No acute distress, Alert Eyes Bilateral: positive: Normal inspection, PERRL ENT: positive: ENT inspection nml, Pharynx nml, No signs of dehydration Neck: positive: Nml inspection, Thyroid nml, No JVD Respiratory: positive: Chest non-tender, No respiratory distress, Breath sounds nml Cardiovascular: positive: No gallop, Irregularly irregular, Systolic murmur, Decreased pulse(s) Peripheral Pulses: 2+ Radial (R), 2+ Radial (L) Abdomen: positive: Tenderness, Guarding, Abnml bowel sounds, Other (rounded, soft) Back: positive: Nml inspection Skin: positive: No rash, Warm, Dry Extremities: positive: Non-tender, Full ROM, Nml appearance, No pedal edema Neurologic/Psychiatric: positive: Oriented x3, CN's nml (2-12), Motor nml, Sensation nml, Weakness, Sensory loss, Depressed mood/affect Reflexes: Bicep (R): 3+, Bicep (L): 3+ - Lab Results Fish Bones: 12/11/17 05:44 12/11/17 05:44 Other Labs: Lab Results x24hrs 12/11/17 12/11/17 12/11/17 Range/Units 05:44 05:44 05:44 WBC 9.1 (4.8-10.8) x10^3/uL RBC 4.19 L (4.70-6.10) 10^6/uL Hgb 12.5 L (14.0-18.0) g/dL Hct 37.4 L (42.0-52.0) % MCV 89.2 (80.0-94.0) fL MCH 29.9 (27.0-31.0) pg MCHC 33.5 (32.0-36.0) g/dL RDW 13.1 (12.0-15.0) % Plt Count 281 (130-450) 10^3/uL MPV 7.0 L (7.4-11.4) fL Neut # 6.1 (1.5-6.6) 10^3/uL Lymph # 1.6 (1.5-3.5) 10^3/uL [place] # 1.0 (0.0-1.0) 10^3/uL Eos # 0.4 (0.0-0.7) 10^3/uL Baso # 0.1 (0.0-0.1) 10^3/uL Absolute Nucleated RBC 0.00 x10^3/uL Nucleated RBC % 0.0 /100WBC ESR 12 (0-20) mm/Hr Sodium 136 (135-145) mmol/L Potassium 4.3 (3.5-5.0) mmol/L Chloride 109 (101-111) mmol/L Carbon Dioxide 21 (21-32) mmol/L Anion Gap 6.0 (6-13) BUN 10 (6-20) mg/dL Creatinine 1.1 (0.6-1.2) mg/dL Estimated GFR (MDRD) 67 L (>89) Glucose 95 (70-100) mg/dL Calcium 8.2 L (8.5-10.3) mg/dL Magnesium 1.7 (1.7-2.8) mg/dL Total Bilirubin 0.6 (0.2-1.0) mg/dL AST 21 (10-42) IU/L ALT 15 (10-60) IU/L Alkaline Phosphatase 35 L (42-121) IU/L C-Reactive Protein 4.0 H (0-1.0) mg/dL Total Protein 5.1 L (6.7-8.2) g/dL Albumin 2.5 L (3.2-5.5) g/dL Globulin 2.6 (2.1-4.2) g/dL Albumin/Globulin Ratio 1.0 (1.0-2.2) - Diagnostic Imaging Diagnostic Imaging Results: positive: Final report reviewed Assessment/Plan - Problem List (1) Corneal abrasion, right Impression: This is now completely resolved and the patient denies blurred vision or any correction effects from this trauma. Patient was found to have an acute corneal abrasion in his right outer eye, which became worse before applying a patch and giving ointment. This is much improved and is only slightly reddened today. Patient denies any further symptoms and has not needed to use the eye patch for the past few days. Plan: Continue to monitor. Qualifiers: Encounter type: initial encounter Qualified Code(s): S05.01XA - Injury of conjunctiva and corneal abrasion without foreign body, right eye, initial encounter (2) S/P appendectomy Impression: Patient underwent an open appendectomy with drain placement for a perforated appendicitis with Dr. Le general surgery on 12/07/17 and today the final stitching occurred at the bedside using a local anesthetic. Patient has been afebrile. He states that he wishes to "eat food". He admits to having activity concerning his bowels. He denies heartburn, nausea or vomiting. He continues on IV cipro based on sensitivities and we will monitor daily ESR/CRP levels with labs. ESR today was normal at 12, CRP was elevated at 4.0. Plan: Continue to monitor for infection and assist with pain control medications if needed. (3) Methamphetamine abuse Impression: Patient does not admit to this when asked, but it is known per chart review that he has been dependent for some time. At the time of admission, he was found to be positive for opiates, oxycodone, amphetamine, methamphetamines, and cannabinoids. Plan: Encourage cessation, monitor visitors, and offer AODA services upon discharge. (4) Ruptured appendicitis Impression: At the time of admission the patient admitted to a 3 day history of constant nonmigratory right lower quadrant pain that became worse with movement. Associated symptoms are constipation and mild nausea. He denies previous abdominal surgeries other than and umbilical hernia repair in the past. As per imaging, this was suspicious for a ruptured appendicitis. Today, the final stitching occurred using local anesthetic. Plan: Patient is now post op day #5 and we will continue to monitor. (5) SIMBA (acute kidney injury) Impression: Patient is known to have CKD per chart review. GFR was low at 38 at the time of admission and improved further at 67. Creatinine on admission was elevated at 1.8, and remains stable at 1.1. Antibiotics were slightly adjusted based on sensitivities. Plan: We will continue IV antibiotics given the potential of infection and monitor vital signs and daily labs. (6) Pulmonary hypertension Impression: Patient has indicated that he has never been a tobacco user, but is a known drug addict with life long addiction. Many of these substances are likely inhaled or ingested. He was most recently + for marijuana. He continues to use oxygen at 1-3L per nasal cannula and his abdomen remains distended. Plan: Sprionolactone was increased to 25mg dialy and we will continue to monitor. (7) Chronic systolic heart failure Impression: Per chart review as per a clinic note dated 10/25/17. The patient sees a education paraprofessional at [facility] Dr. Boone Grace. ECHO 06/08- EF 60-65%, mild LVH , mild to mod AVR, moderate mitral regurg and this is greatly improved from the latest echo that we have from 2013 and the the EF was only 20-25%. Patient is also noted to have a diagnosis of cardiomyopathy and is prescribed spironolactone/HCTZ, lasix, metoprolol ER. Plan: Metoprolol is being given, but diuretics remain on hold due to IVFs and low PO intake. Continue to monitor vital signs. (8) Hypertension Impression: Patient has a history of hypertension and is prescribed lisinopril daily. This has been on hold since the time of admission and post-operatively due to SIMBA. Today blood pressure remains elevated with a blood pressure of 144/94. Norvasc daily was added at 5mg PO and was increased to 10mg daily based on little improvement of blood pressure. Sprionolactone was also increased based on distended abdomen and the worry of increased pulmonary pressures as he remains on oxygen. Hydralazine PO QID was added scheduled due to uncontrolled blood pressures. Plan: Continue antihypertensives and monitor vital signs. Will plan to add an additional agent if this does not improve. Qualifiers: Hypertension type: essential hypertension Qualified Code(s): I10 - Essential (primary) hypertension
[2017-12-11] MEDS: hydrALAZINE 25 MG TABLET PO SCH ×3 (14:52→20:55)
[2017-12-11] MEDS ORDERED: IBUPROFEN 600 MG TABLET PO PRN (15:50)
--- NOTE | 2017-12-11 15:58 | PROVIDER PROGRESS NOTE ---
Subjective - Prog Note Date Prog Note Date: 12/11/17 - Subjective Pt reports feeling: Improved (pt tplerazting diet, so will advance to full liquids for supper, , stiull having bms., afeb, pulse 64, so have stopped maalox , stopped oxygen, stopped duonebs, ordered po percocet and advil for pain, dedcreased ivf-- if here doesd ok with all this will hope to discharge tomorrow- - he may angle for another day however-- all in all seems to be convalescing ok from prtetty bad ruptured appendix, seems to be mobilizing thir space fluids and having good gi continuity-- wound was secondarily closed this am-- hopre to get him home tomorrow) Objective - Vital Signs/Intake & Output Vital Signs: Vital Signs x48h Pulse BP 12/11/17 14:53 64 128/86 H Intake & Output: Intake & Output 12/08/17 12/09/17 12/10/17 12/11/17 23:59 23:59 23:59 23:59 Intake Total 4400 3162.083 2483.333 2076.667 Output Total 950 3265 2486 1690 Balance 3450 -102.917 -2.667 386.667 - Lab Results Fish Bones: 12/11/17 05:44 12/11/17 05:44 Other Labs: Lab Results x24hrs 12/11/17 12/11/17 12/11/17 Range/Units 05:44 05:44 05:44 WBC 9.1 (4.8-10.8) x10^3/uL RBC 4.19 L (4.70-6.10) 10^6/uL Hgb 12.5 L (14.0-18.0) g/dL Hct 37.4 L (42.0-52.0) % MCV 89.2 (80.0-94.0) fL MCH 29.9 (27.0-31.0) pg MCHC 33.5 (32.0-36.0) g/dL RDW 13.1 (12.0-15.0) % Plt Count 281 (130-450) 10^3/uL MPV 7.0 L (7.4-11.4) fL Neut # 6.1 (1.5-6.6) 10^3/uL Lymph # 1.6 (1.5-3.5) 10^3/uL [place] # 1.0 (0.0-1.0) 10^3/uL Eos # 0.4 (0.0-0.7) 10^3/uL Baso # 0.1 (0.0-0.1) 10^3/uL Absolute Nucleated RBC 0.00 x10^3/uL Nucleated RBC % 0.0 /100WBC ESR 12 (0-20) mm/Hr Sodium 136 (135-145) mmol/L Potassium 4.3 (3.5-5.0) mmol/L Chloride 109 (101-111) mmol/L Carbon Dioxide 21 (21-32) mmol/L Anion Gap 6.0 (6-13) BUN 10 (6-20) mg/dL Creatinine 1.1 (0.6-1.2) mg/dL Estimated GFR (MDRD) 67 L (>89) Glucose 95 (70-100) mg/dL Calcium 8.2 L (8.5-10.3) mg/dL Magnesium 1.7 (1.7-2.8) mg/dL Total Bilirubin 0.6 (0.2-1.0) mg/dL AST 21 (10-42) IU/L ALT 15 (10-60) IU/L Alkaline Phosphatase 35 L (42-121) IU/L C-Reactive Protein 4.0 H (0-1.0) mg/dL Total Protein 5.1 L (6.7-8.2) g/dL Albumin 2.5 L (3.2-5.5) g/dL Globulin 2.6 (2.1-4.2) g/dL Albumin/Globulin Ratio 1.0 (1.0-2.2)
[2017-12-11] MEDS ORDERED: IBUPROFEN 600 MG TABLET PO SCH (16:00)
[2017-12-11] MEDS: oxyCOD/ACETAMIN 5 MG/325 MG TABLET PO PRN (21:00)
[2017-12-12] MEDS: oxyCOD/ACETAMIN 5 MG/325 MG TABLET PO PRN ×3 (01:11→16:34)
[2017-12-12 06:01] LABS: BASOPHILS # (AUTO) 0.1 10^3/uL (0.0-0.1); BASOPHILS % (AUTO) 0.9 %; EOSINOPHILS # (AUTO) 0.4 10^3/uL (0.0-0.7); EOSINOPHILS % (AUTO) 4.9 %; HGB - HEMOGLOBIN 12.6 g/dL (14.0-18.0); LYMPHOCYTES % (AUTO) 23.3 %; MEAN CORPUSCULAR HGB CONC 33.4 g/dL (32.0-36.0); MEAN PLATELET VOLUME 6.8 fL (7.4-11.4); MONOCYTES # (AUTO) 0.8 10^3/uL (0.0-1.0); MONOCYTES % (AUTO) 9.8 %; NEUTROPHILS # (AUTO) 5.1 10^3/uL (1.5-6.6); NEUTROPHILS % (AUTO) 61.1 %; PLT - PLATELET COUNT 306 10^3/uL (130-450); RED BLOOD COUNT 4.19 10^6/uL (4.70-6.10); WHITE BLOOD COUNT 8.4 x10^3/uL (4.8-10.8)
[2017-12-12 06:12] LABS: ALBUMIN 2.8 g/dL (3.2-5.5); ALBUMIN/GLOBULIN RATIO 1.1 (1.0-2.2); BILIRUBIN,TOTAL 0.5 mg/dL (0.2-1.0); CALCIUM 8.4 mg/dL (8.5-10.3); CREATININE 1.2 mg/dL (0.6-1.2); CRP - C-REACTIVE PROTEIN 2.3 mg/dL (0-1.0); MAGNESIUM 1.7 mg/dL (1.7-2.8); TOTAL PROTEIN 5.3 g/dL (6.7-8.2)
[2017-12-12] MEDS: PANTOPRAZOLE 40 MG TABLET PO SCH (06:13)
[2017-12-12] MEDS: METOCLOPRAMIDE 10 MG TABLET PO SCH ×3 (06:13→16:34)
[2017-12-12] MEDS ORDERED: ONDANSETRON ODT 4 MG TABLET TL PRN (08:06)
--- NOTE | 2017-12-12 08:12 | PROVIDER PROGRESS NOTE ---
Subjective - Prog Note Date Prog Note Date: 12/12/17 Prog Note Time: 08:00 - Subjective Pt reports feeling: Improved (pod number five from bad ruptured appendectomy-- has gi continuity, urinating well, tolerating full liquids and pain management with only one percocet and maybe added advil-- i did secondary wound closure yesterday, has diminishes drain output that is clear serous and has been tested for creatine and compared with actual urine creatinine- i do not see a problem there-- will dc drain and try to discharge tohome this evening withg dc instructions and more po antibiotics for another 5 days-- alll in all he seems to have done quite well from where he started, ivf decreased to 25 ml/hr, trying to get everything po except for antibiotics for now) Objective - Vital Signs/Intake & Output Vital Signs: Vital Signs x48h Temp Pulse Resp BP Pulse Ox 12/12/17 08:05 36.4 C L 71 18 149/98 H 95 Intake & Output: Intake & Output 12/09/17 12/10/17 12/11/17 12/12/17 23:59 23:59 23:59 23:59 Intake Total 3162.083 2483.333 4441.667 200 Output Total 3265 2486 2210 1605 Balance -102.917 -2.667 2231.667 -1405 - Lab Results Fish Bones: 12/12/17 05:35 12/12/17 05:35 Other Labs: Lab Results x24hrs 12/12/17 12/12/17 12/12/17 Range/Units 05:35 05:35 05:35 WBC 8.4 (4.8-10.8) x10^3/uL RBC 4.19 L (4.70-6.10) 10^6/uL Hgb 12.6 L (14.0-18.0) g/dL Hct 37.7 L (42.0-52.0) % MCV 90.0 (80.0-94.0) fL MCH 30.0 (27.0-31.0) pg MCHC 33.4 (32.0-36.0) g/dL RDW 13.0 (12.0-15.0) % Plt Count 306 (130-450) 10^3/uL MPV 6.8 L (7.4-11.4) fL Neut # 5.1 (1.5-6.6) 10^3/uL Lymph # 2.0 (1.5-3.5) 10^3/uL [place] # 0.8 (0.0-1.0) 10^3/uL Eos # 0.4 (0.0-0.7) 10^3/uL Baso # 0.1 (0.0-0.1) 10^3/uL Absolute Nucleated RBC 0.00 x10^3/uL Nucleated RBC % 0.0 /100WBC ESR 18 (0-20) mm/Hr Sodium 136 (135-145) mmol/L Potassium 4.1 (3.5-5.0) mmol/L Chloride 107 (101-111) mmol/L Carbon Dioxide 22 (21-32) mmol/L Anion Gap 7.0 (6-13) BUN 8 (6-20) mg/dL Creatinine 1.2 (0.6-1.2) mg/dL Estimated GFR (MDRD) 60 L (>89) Glucose 95 (70-100) mg/dL Calcium 8.4 L (8.5-10.3) mg/dL Magnesium 1.7 (1.7-2.8) mg/dL Total Bilirubin 0.5 (0.2-1.0) mg/dL AST 37 (10-42) IU/L ALT 26 (10-60) IU/L Alkaline Phosphatase 40 L (42-121) IU/L C-Reactive Protein 2.3 H (0-1.0) mg/dL Total Protein 5.3 L (6.7-8.2) g/dL Albumin 2.8 L (3.2-5.5) g/dL Globulin 2.5 (2.1-4.2) g/dL Albumin/Globulin Ratio 1.1 (1.0-2.2)
[2017-12-12] MEDS: SACCHAROMYCES BOULARDII 250 MG CAPSULE PO SCH ×2 (08:48→16:34)
[2017-12-12] MEDS: SPIRONOLACTONE 25 MG TABLET PO SCH (08:48)
[2017-12-12] MEDS: METOPROLOL SUCCINATE 50 MG TABLET PO SCH (08:48)
[2017-12-12] MEDS: CIPROFLOXACIN 400 MG/200 ML 200 ML IV SCH (08:48)
[2017-12-12] MEDS: hydrALAZINE 25 MG TABLET PO SCH ×3 (08:48→16:34)
[2017-12-12] MEDS: SODIUM CHLORIDE FLUSH 0.9% 10 ML SYRINGE IVP SCH ×2 (08:48→16:34)
[2017-12-12] MEDS: amLODIPine 5 MG TABLET PO SCH (08:57)
[2017-12-12] MEDS: HEPARIN 5,000 UNIT/ML VIAL SUBQ SCH (08:57)
[2017-12-12] MEDS ORDERED: NS W/20 MEQ KCL 1,000 ML IV SCH (09:00)
--- NOTE | 2017-12-12 12:36 | Discharge Plan ---
Discharge Plan Diet: Regular Activity Restrictions: Activity as Tolerated Shower Restrictions: Yes (do not shower until saturday) Driving Restrictions: Yes (do not drive while taking narcotics) No Smoking: If you smoke, Please STOP! Call for help. Disposition: 01 Home, Self Care Condition: Stable Prescriptions: Ondansetron Odt [Zofran Odt] 4 mg TL Q4HR PRN #16 tablet PRN Reason: Nausea / Vomiting oxyCODONE/ACET 5/325 [Percocet 5 mg/325 mg] 1 tab PO Q4HR PRN #30 tablet PRN Reason: Pain Ibuprofen [Motrin] 600 mg PO Q6HR PRN #50 tablet PRN Reason: Pain amLODIPine [Norvasc] 10 mg PO DAILY #30 tablet Ciprofloxacin HCl [Cipro] 500 mg PO BID #10 tablet Metoclopramide [Reglan] 10 mg PO ACHS #12 tablet Metronidazole [Flagyl] 500 mg PO Q6H #20 tablet Pantoprazole [Protonix] 40 mg PO QDAC #14 tablet Spironolactone [Aldactone] 25 mg PO DAILY #30 tablet Follow-up with: Cee Hill ARNP [Primary Care Provider] -
[2017-12-12 17:22] VITALS: BP 126/83
--- NOTE | 2017-12-13 11:12 | DISCHARGE SUMMARY ---
Physician: Guevara Le MD DATE OF ADMISSION: 12/06/2017 DATE OF DISCHARGE: 12/12/2017 ADMISSION DIAGNOSIS: Advanced appendicitis plus medical comorbidities. DISCHARGE DIAGNOSIS: Advanced appendicitis plus medical comorbidities. OPERATION DONE: Open appendectomy on 12/07/2017, with open wound care. The H and P was dictated by me. He is a fellow who came in with advanced appendicitis on a CT scan. By the time they got him worked up in the ER about 9 o'clock at night, I felt that it would be prudent to hydrate him, give him IV antibiotics overnight, and attack his problem on Saturday morning, which we did. He had a complicated appendectomy, and we ended up getting his appendix out, put drains in, did open wound care, and he did relatively well in the postoperative period. He started putting lots out of his ELIZABETH drain on about the second or third day, which I had tested for creatinine. His urine creatinine was in the 135 range, the creatinine in that drainage was less than 13 according to the lab, so this is noted to be sure I did not have a ureteral injury. This was consistent with just abdominal ascites from all the inflammation, and he continued to put quite a bit out of his drain. We maintained him on antibiotics. We cultured his fluid. He initially was on Zosyn and Flagyl, and then the fluid culture from the OR after about 36-48 hours was growing a beta hemolytic strep and a Klebsiella. The Klebsiella was not sensitive to the Zosyn, so we ended up switching him to Cipro and Flagyl , and he maintained being afebrile. Had a pretty distended belly, developed GI continuity on probably Saturday of this week. He started passing gas on Saturday or so, then started having bowel movements; so we started him on a clear liquid diet slowly, gave him 24 hours of that and Maalox, and then he had some more bowel movements for which we were pleased, and we advanced him to full liquids. He has been afebrile, hemodynamically stable, normal white count for at least 48-72 hours. I did secondary closure of his wound yesterday, looked at it , took his drain out today, Steri-Stripped him. I think he is okay for discharge. MEDICATIONS 1. We are going to send him home on Cipro and Flagyl for antibiotics, and tell him to take Nidia's Kefir or that Florastor stuff for repopulating his intestines. 2. Percocet 1 q.4-6 hours p.r.n. pain (he can supplement that with Advil). 3. Zofran sublingual ODT q.4-6 hours p.r.n. nausea (I do not think he will have that). 4. Hospitalist helped me with his care because of his heart issues. They started him on some amlodipine, I think he is going to go home on 10 mg of that daily. 5. He is to get back on his Lasix, which was 20 mg a day. 6. Lisinopril 10 mg daily. 7. Metoprolol ER 100 mg daily. 8. Protonix. 9. Spironolactone 25 mg daily. 10. Stay on his Zantac. He probably needs to see his PCP in about a week for suture removal, assuming everything goes well. I told him if he has any redness, fevers, nausea, vomiting, drainage from his wounds, he probably needs to come back to the ER for evaluation. The patient is a little bit of an odd personality, hopefully he maintains compliance. I told him he could take Maalox , a tablespoon after meals and at bedtime, to keep his bowels going, and if they slowed down he could increase that. All in all, with a little bit of luck he will weather this storm and go from there. We hope he does well. ADDENDUM ADMISSION DIAGNOSIS: Advanced perforated appendicitis. DISCHARGE DIAGNOSIS: Advanced perforated appendicitis. The addendum is to justify him being here more than 4 days. With a little bit of luck we would have gotten him out in 4 days, but the findings of the operation included quite a difficult appendectomy and apparent perforation, and appendix actually came out in parts, and I cultured fluid in his belly when we did it. His cultures grew out Klebsiella, hemolytic strep, and just yesterday came back with a light growth of bacteroides. For all those bad bugs he was maintained on IV antibiotics the complete time he was here. I did secondary closure on his wound the day prior to discharge, and I took his drain out the day of discharge. All of these were mitigating factors for him to be here more than the 96 hours, which we had hoped to get him out under when we took care of him. We hope everything goes well for the patient. TD: 12/13/2017 10:48 cc: JIMMY Martines TD: 12/12/2017 14:01 MTDD
== END 2017-12-12 17:54 | disposition home or self-care (01) | DRG 339 ==
LOC: ED 17:17 → MS2 20:30
PROVIDERS: ADMIT Surgery; ATTEND Surgery
PROC: 0DTJ0ZZ Resection of Appendix, Open Approach (ICD-10-PCS; principal; 2017-12-07 09:00)
PROC: 0HQ7XZZ Repair Abdomen Skin, External Approach (ICD-10-PCS; 2017-12-11)
DX: K35.2 Acute appendicitis with generalized peritonitis (principal); I11.0 Hypertensive heart disease with heart failure; I50.9 Heart failure, unspecified; F15.10 Other stimulant abuse, uncomplicated; F19.10 Other psychoactive substance abuse, uncomplicated; K21.9 Gastro-esophageal reflux disease without esophagitis; I42.7 Cardiomyopathy due to drug and external agent; I50.22 Chronic systolic (congestive) heart failure; E87.1 Hypo-osmolality and hyponatremia; N17.9 Acute kidney failure, unspecified; F15.20 Other stimulant dependence, uncomplicated; I13.0 Hypertensive heart and chronic kidney disease with heart failure and stage 1 through stage 4 chronic kidney disease, or unspecified chronic kidney disease; R04.2 Hemoptysis; I27.20 Pulmonary hypertension, unspecified; B96.1 Klebsiella pneumoniae [K. pneumoniae] as the cause of diseases classified elsewhere; B95.4 Other streptococcus as the cause of diseases classified elsewhere; S05.01XA Injury of conjunctiva and corneal abrasion without foreign body, right eye, initial encounter; X58.XXXA Exposure to other specified factors, initial encounter; Y92.230 Patient room in hospital as the place of occurrence of the external cause; N18.9 Chronic kidney disease, unspecified; F12.20 Cannabis dependence, uncomplicated; I34.0 Nonrheumatic mitral (valve) insufficiency; Z16.11 Resistance to penicillins
CPT/HCPCS: 36415; 51702; 71045; 74022; 74176; 78582; 80053; 80306; 81001; 81003; 82570; 83690; 83735; 83880; 84484; 85025; 85610; 85651; 86140; 86850; 86900; 86901; 87070; 87077; 87086; 87205; 93005; 94640; 96360; 99283; 99285

== ENCOUNTER 2018-01-06 13:51 | Outpatient (CLI) | payer MEDICARE ==
[2018-01-06 18:51] LABS: BASOPHILS % (AUTO) 0.7 %; EOSINOPHILS # (AUTO) 0.4 10^3/uL (0.0-0.7); EOSINOPHILS % (AUTO) 4.9 %; LYMPHOCYTES # (AUTO) 2.4 10^3/uL (1.5-3.5); MEAN CORPUSCULAR HEMOGLOBIN 30.3 pg (27.0-31.0); MEAN CORPUSCULAR HGB CONC 33.5 g/dL (32.0-36.0); MEAN CORPUSCULAR VOLUME 90.5 fL (80.0-94.0); MEAN PLATELET VOLUME 8.4 fL (7.4-11.4); MONOCYTES # (AUTO) 0.6 10^3/uL (0.0-1.0); MONOCYTES % (AUTO) 8.2 %; NEUTROPHILS # (AUTO) 3.7 10^3/uL (1.5-6.6); NEUTROPHILS % (AUTO) 52.2 %; PLT - PLATELET COUNT 219 10^3/uL (130-450); WHITE BLOOD COUNT 7.2 x10^3/uL (4.8-10.8)
[2018-01-06 19:04] LABS: ALBUMIN 4.1 g/dL (3.2-5.5); ALBUMIN/GLOBULIN RATIO 1.5 (1.0-2.2); ALKALINE PHOSPHATASE 57 IU/L (42-121); ALT ALANINE AMINOTRANSFERASE 20 IU/L (10-60); AST ASPARTATE AMINOTRANSFERASE 17 IU/L (10-42); BILIRUBIN,TOTAL 0.6 mg/dL (0.2-1.0); BUN - BLOOD UREA NITROGEN 34 mg/dL (6-20); CALCIUM 8.9 mg/dL (8.5-10.3); CARBON DIOXIDE - CO2 24 mmol/L (21-32); CHLORIDE 108 mmol/L (101-111); CREATININE 1.5 mg/dL (0.6-1.2); GFR - MDRD 47 (>89); GLUCOSE 87 mg/dL (70-100); SODIUM 138 mmol/L (135-145); TOTAL PROTEIN 6.8 g/dL (6.7-8.2)
[2018-01-06 19:10] LABS: CRP - C-REACTIVE PROTEIN < 1.0 mg/dL (0-1.0)
== END 2018-01-06 13:52 ==
LOC: LAB.S 13:51
PROVIDERS: ATTEND Nurse Practitioner Family
DX: N18.9 Chronic kidney disease, unspecified (principal)
CPT/HCPCS: 36415; 80053; 85025; 86140